=== PATIENT | female | born 1950 | race Caucasian/White ===

== ENCOUNTER 2020-07-31 13:33 | Outpatient (REF) | payer MEDICARE, SELFPAY ==
[2020-07-31 17:59] LABS: Estimated Average Glucose 154 mg/dL
== END 2020-07-31 13:34 | disposition home or self-care (01) ==
LOC: HO.MANLR 13:33
PROVIDERS: PCP Internal Medicine; Visit Provider Internal Medicine
DX: E11.9 Type 2 diabetes mellitus without complications (principal)
CPT/HCPCS: 83036

== ENCOUNTER 2020-08-17 15:49 | Outpatient (REF) | payer MEDICARE, SELFPAY ==
--- NOTE | 2020-08-17 15:54 | MM_ITS ---
EXAMINATION: MM SCREENING DIGITAL BREAST TOMOSYNTHESIS, BILATERAL CLINICAL INFORMATION: Screening. Asymptomatic. The lifetime risk of breast cancer based on the Tyrer-Cuzick Model is 3%. COMPARISON: Mammography: 12/23/2018; outside mammography 07/11/2015 ([facility]). TECHNIQUE: Digital breast tomosynthesis is performed in both the craniocaudal and mediolateral oblique views along with computer-aided detection (CAD). Synthesized 2D images are generated from the tomosynthesis. FINDINGS: There are scattered areas of fibroglandular density (ACR BI-RADS breast composition Category b). There are no significant masses, abnormal calcifications, or other abnormalities. Parenchymal pattern is similar to prior exams. No developing density. No significant changes. MM/MM tomosynthesis screening BI IMPRESSION: No mammographic evidence of malignancy. ASSESSMENT: BI-RADS 1: Negative RECOMMENDATION: Routine annual mammography screening. This patient's information was entered into a reminder system with a target due date for their next mammogram.
== END 2020-08-17 15:50 | disposition home or self-care (01) ==
LOC: HO.MAMMO 15:49
PROVIDERS: PCP Internal Medicine; Visit Provider Internal Medicine
DX: Z12.31 Encounter for screening mammogram for malignant neoplasm of breast (principal)
CPT/HCPCS: 77063; 77067

== ENCOUNTER 2021-01-02 10:45 | Outpatient (REF) | payer MEDICARE, SELFPAY ==
[2021-01-02 13:20] LABS: Alanine Aminotransferase 26 U/L (0-31); Albumin Level 4.6 g/dL (3.5-5.0); Alkaline Phosphatase 66 U/L (39-117); Anion Gap 16 (12-20); Aspartate Amino Transferase 23 U/L (5-31); Bilirubin Total 0.5 mg/dL (0.0-1.0); Blood Urea Nitrogen 25 mg/dL (9-16); Calcium 9.3 mg/dL (8.4-10.2); Carbon Dioxide 25 mmol/L (22-29); Chloride 106 mmol/L (96-108); Cholesterol 211 mg/dL; Estimated Glomerular Filt Rate > 60; Glucose Fasting 143 mg/dL (60-99); HDL Cholesterol 51 mg/dL; LDL Cholesterol Calculated 125 mg/dl; Potassium 4.1 mmol/L (3.3-5.1); Sodium 143 mmol/L (135-145); Total Protein 7.1 g/dL (6.5-8.0); Triglycerides 175 mg/dL
[2021-01-02 13:24] LABS: Estimated Average Glucose 148 mg/dL; Hemoglobin A1c % 6.8 %
[2021-01-02 13:55] LABS: Creatinine Urine 95.03 mg/dL; Microalbum/Creatinine Ratio Ur 8.4 ug/mg cr
== END 2021-01-02 10:46 | disposition home or self-care (01) ==
LOC: HO.MANLDS 10:45
PROVIDERS: PCP Internal Medicine; Visit Provider Internal Medicine
DX: E11.9 Type 2 diabetes mellitus without complications (principal)
CPT/HCPCS: 36415; 80053; 80061; 82043; 83036

== ENCOUNTER → 2021-01-07 09:23 | Outpatient (BNVA) | payer MEDICARE, SELFPAY | PROVIDERS: PCP Internal Medicine; Visit Provider Obstetrics & Gynecology ==

== ENCOUNTER 2021-01-17 10:20 | Outpatient (REF) | payer MEDICARE, SELFPAY ==
--- NOTE | ~2021-01-17 | MM_ITS ---
EXAMINATION: BONE DENSITOMETRY CLINICAL INDICATION: Asymptomatic menopausal state. COMPARISON: This is the patient's baseline examination. TECHNIQUE: Using a [employer] DXA System (software version: 13.1) manufactured by [employer], dual-energy x-ray absorptiometry was performed of the lumbar spine and left hip. The images are of good technical quality. Summary results are attached. FINDINGS: AP SPINE L1-L4: BMD 1.289 g/cm2, Z-score 1.9, T-score 0.9, normal. LEFT FEMUR, NECK: BMD 0.874 g/cm2, Z-score 0.1, T-score -1.2, osteopenia. LEFT FEMUR, TOTAL: BMD 1.115 g/cm2, Z-score 1.8, T-score 0.8, normal. IDENTIFIED RISK FACTORS: Menopause. HISTORY OF FRACTURE: None listed. MEDICATIONS: Multivitamin. MM/XR DEXA axial skeleton IMPRESSION: 1. DIAGNOSIS: Osteopenia based on the lowest T-score value of -1.2 in the femoral neck applying World Health Organization criteria. 2. 10-YEAR FRACTURE RISK PREDICTION, FRAX: Major osteoporotic fracture (clinical spine, forearm, hip or shoulder) 4.7%. Hip fracture 0.5%. 3. Treatment Recommendations: NOF guidelines recommend consideration for treatment in postmenopausal women and men age 50 and older presenting with the following: -A hip or vertebral (clinical or morphometric) fracture. -T-score less than or equal to -2.5 at the femoral neck or spine after appropriate evaluation to exclude secondary causes. -Low bone mass at the hip or spine and a 10-year fracture probability by FRAX of greater than or equal to 3% for hip fracture or greater than or equal to 20% for major osteoporotic fracture based on the [place] adapted WHO algorithm. 4. Other Recommendations: All treatment decisions require clinical judgment and consideration of individual patient factors, including patient preferences, comorbidities, previous drug use, risk factors not captured in the FRAX model (e.g. frailty, falls, vitamin D deficiency, increased bone turnover, interval significant decline in bone density) and possible under or overestimation of fracture risk by FRAX. Additional medical evaluation for secondary cause of low bone mineral density may be appropriate. FUTURE SCAN RECOMMENDATION: People with diagnosed cases of osteoporosis or at high risk for fracture should have regular bone mineral density tests. For patients eligible for Medicare, routine testing is allowed once every 2 years. The testing frequency can be increased to one year for patients who have rapidly progressing disease, those who are receiving or discontinuing medical therapy to restore bone mass, or have additional risk factors.
== END 2021-01-17 10:21 | disposition home or self-care (01) ==
LOC: HO.MAMMO 10:20
PROVIDERS: PCP Internal Medicine; Visit Provider Obstetrics & Gynecology
DX: Z13.820 Encounter for screening for osteoporosis (principal); Z78.0 Asymptomatic menopausal state
CPT/HCPCS: 77080

== ENCOUNTER → 2021-01-31 11:01 | Outpatient (BNVA) | payer MEDICARE, SELFPAY | PROVIDERS: PCP Internal Medicine; Visit Provider Obstetrics & Gynecology | CPT/HCPCS: Q3014 ==

== ENCOUNTER 2021-05-24 09:59 | Outpatient (REF) | payer MEDICARE, SELFPAY ==
[2021-05-24 11:52] LABS: Estimated Average Glucose 154 mg/dL
[2021-05-24 12:09] LABS: Alanine Aminotransferase 25 U/L (0-31); Albumin Level 4.5 g/dL (3.5-5.0); Alkaline Phosphatase 72 U/L (39-117); Anion Gap 13 (12-20); Aspartate Amino Transferase 23 U/L (5-31); Bilirubin Total 0.5 mg/dL (0.0-1.0); Blood Urea Nitrogen 21 mg/dL (9-16); Calcium 9.4 mg/dL (8.4-10.2); Carbon Dioxide 25 mmol/L (22-29); Chloride 107 mmol/L (96-108); Cholesterol 193 mg/dL; Estimated Glomerular Filt Rate > 60; Glucose Fasting 145 mg/dL (60-99); HDL Cholesterol 51 mg/dL; LDL Cholesterol Calculated 118 mg/dl; Potassium 4.3 mmol/L (3.3-5.1); Sodium 141 mmol/L (135-145); Triglycerides 121 mg/dL
== END 2021-05-24 10:00 | disposition home or self-care (01) ==
LOC: HO.MANLDS 09:59
PROVIDERS: PCP Internal Medicine; Visit Provider Internal Medicine
DX: E11.9 Type 2 diabetes mellitus without complications (principal)
CPT/HCPCS: 36415; 80053; 80061; 83036

== ENCOUNTER 2021-09-17 10:36 | Outpatient (REF) | payer MEDICARE, SELFPAY ==
[2021-09-17 14:06] LABS: Estimated Average Glucose 148 mg/dL; Hemoglobin A1c % 6.8 %
== END 2021-09-17 10:37 | disposition home or self-care (01) ==
LOC: HO.MANLDS 10:36
PROVIDERS: PCP Internal Medicine; Visit Provider Internal Medicine
DX: E11.9 Type 2 diabetes mellitus without complications (principal)
CPT/HCPCS: 36415; 83036

== ENCOUNTER 2022-01-22 09:02 | Outpatient (REF) | payer MEDICARE, SELFPAY ==
[2022-01-22 11:55] LABS: Estimated Average Glucose 146 mg/dL; Hemoglobin A1c % 6.7 %
[2022-01-22 12:05] LABS: Alanine Aminotransferase 26 U/L (0-31); Albumin Level 4.5 g/dL (3.5-5.0); Alkaline Phosphatase 65 U/L (39-117); Anion Gap 14 (12-20); Aspartate Amino Transferase 26 U/L (5-31); Bilirubin Total 0.3 mg/dL (0.0-1.0); Blood Urea Nitrogen 22 mg/dL (9-16); Calcium 9.6 mg/dL (8.4-10.2); Carbon Dioxide 26 mmol/L (22-29); Chloride 106 mmol/L (96-108); Cholesterol 224 mg/dL; Estimated Glomerular Filt Rate > 60; Glucose Fasting 149 mg/dL (60-99); HDL Cholesterol 51 mg/dL; LDL Cholesterol Calculated 136 mg/dl; Potassium 4.6 mmol/L (3.3-5.1); Sodium 141 mmol/L (135-145); Total Protein 7.3 g/dL (6.5-8.0); Triglycerides 188 mg/dL
== END 2022-01-22 09:03 | disposition home or self-care (01) ==
LOC: HO.MANLDS 09:02
PROVIDERS: PCP Internal Medicine; Visit Provider Internal Medicine
DX: E11.9 Type 2 diabetes mellitus without complications (principal)
CPT/HCPCS: 36415; 80053; 80061; 83036

== ENCOUNTER 2022-06-25 09:51 | Outpatient (REF) | payer MEDICARE, SELFPAY ==
[2022-06-25 11:37] LABS: Estimated Average Glucose 163 mg/dL; Hemoglobin A1c % 7.3 %
[2022-06-25 14:56] LABS: Alanine Aminotransferase 33 U/L (0-31); Albumin Level 4.3 g/dL (3.5-5.0); Alkaline Phosphatase 71 U/L (39-117); Anion Gap 16 (12-20); Aspartate Amino Transferase 29 U/L (5-31); Bilirubin Total 0.4 mg/dL (0.0-1.0); Blood Urea Nitrogen 18 mg/dL (9-16); Calcium 9.4 mg/dL (8.4-10.2); Carbon Dioxide 26 mmol/L (22-29); Chloride 108 mmol/L (96-108); Cholesterol 215 mg/dL; Estimated Glomerular Filt Rate > 60; Glucose Random 138 mg/dL (60-115); HDL Cholesterol 50 mg/dL; LDL Cholesterol Calculated 136 mg/dl; Potassium 4.7 mmol/L (3.3-5.1); Sodium 145 mmol/L (135-145); Total Protein 6.8 g/dL (6.5-8.0); Triglycerides 146 mg/dL
== END 2022-06-25 09:52 | disposition home or self-care (01) ==
LOC: HO.MANLDS 09:51
PROVIDERS: Visit Provider Internal Medicine
DX: E11.9 Type 2 diabetes mellitus without complications (principal)
CPT/HCPCS: 36415; 80053; 80061; 83036

== ENCOUNTER 2022-08-08 12:25 | Outpatient (REF) | payer MEDICARE, SELFPAY ==
--- NOTE | ~2022-08-08 | XR_ITS ---
EXAMINATION: XR KNEE, RIGHT CLINICAL INFORMATION: Derangement of medial meniscus. COMPARISON: None TECHNIQUE: Four views of the right knee. FINDINGS: There is loss of medial compartment joint space with periarticular spurring. The lateral and patellofemoral compartment joint spaces normal. There are no loose bodies. No abnormal joint effusion seen XR/XR knee RT 3V IMPRESSION: Degenerative arthritic changes medial compartment with periarticular spurring. No visible acute fracture or dislocation seen.
== END 2022-08-08 12:26 | disposition home or self-care (01) ==
LOC: HO.XRAY 12:25
PROVIDERS: PCP Internal Medicine; Visit Provider Internal Medicine
DX: M23.203 Derangement of unspecified medial meniscus due to old tear or injury, right knee (principal)
CPT/HCPCS: 73562

== ENCOUNTER 2022-11-25 11:14 | Outpatient (REF) | payer MEDICARE, SELFPAY ==
[2022-11-25 14:08] LABS: Estimated Average Glucose 174 mg/dL; Hemoglobin A1c % 7.7 %
== END 2022-11-25 11:15 | disposition home or self-care (01) ==
LOC: HO.WFDLDS 11:14
PROVIDERS: Visit Provider Internal Medicine
DX: E11.9 Type 2 diabetes mellitus without complications (principal)
CPT/HCPCS: 36415; 83036

== ENCOUNTER 2023-02-10 10:35 | Outpatient (REF) | payer MEDICARE, SELFPAY ==
--- NOTE | ~2023-02-10 | MM_ITS ---
EXAMINATION: MM SCREENING DIGITAL BREAST TOMOSYNTHESIS, BILATERAL CLINICAL INFORMATION: Screening. Asymptomatic. The lifetime risk of breast cancer based on the Tyrer-Cuzick Model is 3%. COMPARISON: Mammography: 08/17/2020, 01/02/2019, outside exam 07/11/2015 ([facility] [place]) TECHNIQUE: Digital breast tomosynthesis is performed in both the craniocaudal and mediolateral oblique views along with computer-aided detection (CAD). Synthesized 2D images are generated from the tomosynthesis. FINDINGS: There are scattered areas of fibroglandular density (ACR BI-RADS breast composition Category b). There are no significant masses, abnormal calcifications, or other abnormalities. Parenchymal pattern is similar to prior studies. There is no developing density or architectural abnormality. The axilla and skin contours are unremarkable. No significant changes. MM/MM tomosynthesis screening BI IMPRESSION: No mammographic evidence of malignancy. ASSESSMENT: BI-RADS 1: Negative RECOMMENDATION: Routine annual mammography screening. This patient's information was entered into a reminder system with a target due date for their next mammogram.
== END 2023-02-10 10:36 | disposition home or self-care (01) ==
LOC: HO.MAMMO 10:35
PROVIDERS: PCP Internal Medicine; Visit Provider Internal Medicine
DX: Z12.31 Encounter for screening mammogram for malignant neoplasm of breast (principal)
CPT/HCPCS: 77063; 77067

== ENCOUNTER 2023-02-13 11:40 | Outpatient (REF) | payer MEDICARE, SELFPAY ==
[2023-02-13 14:06] LABS: Estimated Average Glucose 143 mg/dL; Hemoglobin A1c % 6.6 %
== END 2023-02-13 11:41 | disposition home or self-care (01) ==
LOC: HO.MANLDS 11:40
PROVIDERS: Visit Provider Internal Medicine
DX: E11.9 Type 2 diabetes mellitus without complications (principal)
CPT/HCPCS: 36415; 83036

== ENCOUNTER 2023-05-19 12:05 | Outpatient (REF) | payer MEDICARE, SELFPAY ==
[2023-05-20 05:20] LABS: Estimated Average Glucose 134 mg/dL; Hemoglobin A1c % 6.3 %
== END 2023-05-19 12:06 | disposition home or self-care (01) ==
LOC: HO.MANLDS 12:05
PROVIDERS: Visit Provider Internal Medicine
DX: E11.9 Type 2 diabetes mellitus without complications (principal)
CPT/HCPCS: 36415; 83036

== ENCOUNTER 2023-09-11 09:35 | Outpatient (REF) | payer MEDICARE, SELFPAY ==
[2023-09-11 13:47] LABS: Estimated Average Glucose 154 mg/dL
== END 2023-09-11 09:36 | disposition home or self-care (01) ==
LOC: HO.MANLDS 09:35
PROVIDERS: Visit Provider Internal Medicine
DX: E11.9 Type 2 diabetes mellitus without complications (principal)
CPT/HCPCS: 36415; 83036

== ENCOUNTER 2024-01-20 11:12 | Outpatient (REF) | payer MEDICARE, SELFPAY ==
[2024-01-20 13:41] LABS: Estimated Average Glucose 157 mg/dL; Hemoglobin A1c % 7.1 % (<6.0)
== END 2024-01-20 11:13 | disposition home or self-care (01) ==
LOC: HO.MANLDS 11:12
PROVIDERS: Visit Provider Internal Medicine
DX: E11.9 Type 2 diabetes mellitus without complications (principal)
CPT/HCPCS: 36415; 83036

== ENCOUNTER 2024-05-18 11:22 | Outpatient (REF) | payer MEDICARE, SELFPAY ==
[2024-05-18 13:25] LABS: MANUAL DIFF FLAG NO
[2024-05-18 13:43] LABS: Estimated Average Glucose 151 mg/dL; Hemoglobin A1c % 6.9 % (<6.0)
[2024-05-18 13:50] LABS: Basophils Percent Auto 0.3 % (0-2); Eosinophils Absolute Auto 0.2 X10*3/uL (0.0-0.4); Eosinophils Percent Auto 2.3 % (0-4); Hematocrit 38.5 % (37.0-47.0); Hemoglobin 13.1 g/dl (12.0-16.0); Imm Gran Abs Auto 0.02 X10*3/uL (0.00-0.03); Imm Gran Pct Auto 0.3 % (0.0-0.4); Lymphocytes Absolute Auto 3.7 X10*3/uL (1.2-4.9); Lymphocytes Percent Auto 47.8 % (20-40); Mean Corpuscular Hemoglobin 30.1 pg (27.0-33.0); Mean Corpuscular Volume 88.5 fL (80.0-98.0); Monocytes Absolute Auto 0.5 X10*3/uL (0.1-1.2); Monocytes Percent Auto 6.6 % (2-11); Neutrophils Absolute Auto 3.3 x10*3/uL (2.0-8.3); Neutrophils Percent Auto 42.7 % (45-73); Platelet Count 186 X10*3/uL (160-400); Red Blood Count 4.35 X10*6/uL (4.20-5.50); White Blood Count 7.7 X10*3/uL (4.8-10.8)
== END 2024-05-18 11:23 | disposition home or self-care (01) ==
LOC: HO.MANLDS 11:22
PROVIDERS: Visit Provider Internal Medicine
DX: R06.09 Other forms of dyspnea (principal); E11.9 Type 2 diabetes mellitus without complications
CPT/HCPCS: 36415; 83036; 85025

== ENCOUNTER 2024-08-22 09:36 | Day surgery (SDC) | payer MEDICARE, SELFPAY ==
[2024-08-17 07:35] VITALS: BMI 39.7
--- NOTE | 2024-08-18 13:59 | HO.ANESPROP2 ---
Documented by User: Zeinab Saravia NP 08/18/24 14:02 HPI - Anesthesia Eval Consult details Narrative: 73yo F for Left Cataract Extraction IOL Insertion No previous cataract on record PMFSH Active Problems Active Problems: All Active Problems (Updated 08/17/24 @ 07:27 by Alicia Pretty RN) Osteopenia (Acute) Osteoporosis (Acute) Menopause (Acute) Well woman exam (Acute) Past Medical History Medical History Impingement syndrome of left shoulder Rupture of left rotator cuff Derangement of medial meniscus of right knee Osteoarthritis Dyspnea on exertion Cervical radiculopathy Psoriasis Proctocolitis Allergic rhinitis Bradycardia Left bundle branch block Macular hole of left eye Sleep apnea Diabetes High cholesterol Hypertension Surgical History Surgical History Tubal ligation status History of appendectomy Social History Social History Alcohol intake: never Patient Tobacco Use Status: Never used Tobacco Use of substances other than those prescribed or required for medical reasons: No Are you DNR?: No Advance Directives: No Advance Directives Information Provided: Yes Advance Directives on File: No Recently lost weight without trying: No Eating poorly because of decreased appetite: No Nutrition Risks: No Nutritional Risk Patient : No : No Gender identity: Female Meds Allergies Allergy/AdvReac Type Severity Reaction Status Date / Time No Known Allergies Allergy Mild NOT Verified 01/31/21 11:02 APPLICABLE Home Medications ?Medication ?Instructions ?Recorded ?Confirmed ?Last Taken ?Type lovastatin 40 mg tablet 40 mg PO DAILY 01/07/21 08/22/24 08/22/24 07:00 History aspirin 81 mg tablet,delayed 81 mg PO DAILY 08/17/24 08/22/24 08/20/24 History release flaxseed oil 1,000 mg capsule 1,000 mg PO DAILY 08/17/24 08/22/24 08/20/24 History glimepiride 4 mg tablet 4 mg PO DAILY 08/17/24 08/22/24 08/22/24 07:00 History lactobacillus combination no.4 3 3,000 mmu cells PO DAILY 08/17/24 08/22/24 Unknown History billion cell capsule (Probiotic) lisinopril 10 mg tablet 10 mg PO DAILY 08/17/24 08/22/24 08/22/24 07:00 History multivitamin 1 tab PO DAILY 08/17/24 08/22/24 Unknown History Exam Height,Weight and Vital Signs: Height 4 ft 11.25 in Weight 89.902 kg Assessment and Plan Assessment Anesthesia Assessment: Chart Reviewed Documented by User: Bernice Cuenca MD 08/22/24 10:48 PMF Past Medical History Medical History Impingement syndrome of left shoulder Rupture of left rotator cuff Derangement of medial meniscus of right knee Osteoarthritis Dyspnea on exertion Cervical radiculopathy Psoriasis Proctocolitis Allergic rhinitis Bradycardia Left bundle branch block Macular hole of left eye Sleep apnea Diabetes High cholesterol Hypertension Surgical History Surgical History Tubal ligation status History of appendectomy History of Problems with Anesthesia: No Social History Social History Alcohol intake: never Patient Tobacco Use Status: Never used Tobacco Use of substances other than those prescribed or required for medical reasons: No Are you DNR?: No Advance Directives: No Advance Directives Information Provided: Yes Advance Directives on File: No Recently lost weight without trying: No Eating poorly because of decreased appetite: No Nutrition Risks: No Nutritional Risk Patient : No : No Gender identity: Female Meds Allergies Allergy/AdvReac Type Severity Reaction Status Date / Time No Known Allergies Allergy Mild NOT Verified 01/31/21 11:02 APPLICABLE Home Medications ?Medication ?Instructions ?Recorded ?Confirmed ?Last Taken ?Type lovastatin 40 mg tablet 40 mg PO DAILY 01/07/21 08/22/24 08/22/24 07:00 History aspirin 81 mg tablet,delayed 81 mg PO DAILY 08/17/24 08/22/24 08/20/24 History release flaxseed oil 1,000 mg capsule 1,000 mg PO DAILY 08/17/24 08/22/24 08/20/24 History glimepiride 4 mg tablet 4 mg PO DAILY 08/17/24 08/22/24 08/22/24 07:00 History lactobacillus combination no.4 3 3,000 mmu cells PO DAILY 08/17/24 08/22/24 Unknown History billion cell capsule (Probiotic) lisinopril 10 mg tablet 10 mg PO DAILY 08/17/24 08/22/24 08/22/24 07:00 History multivitamin 1 tab PO DAILY 08/17/24 08/22/24 Unknown History Exam Airway Mallampati Class: II TM Dist: >3cm Neck ROM: Full Loose/Missing/Broken Teeth: No Heart: RRR Lungs: CTA Assessment and Plan Final Anesthetic Review History of Problems with Anesthesia: No NPO: Yes ASA Class: III Final Preanesthetic Review: Meds/Allgs Chart Reviewed, Consent Obtained/Reviewed and Anes Risks/Benef Reviewed Patient Risk: Intermediate Procedure Risk: Low Anesthetic Plan Anesthetic Plan: MAC: Disposition: Standard PACU
[2024-08-22] MEDS: Tetracaine HCl/PF 0.5% Oph Sol 4 ML DROPS 1 DROP EYE-LEFT (10:42)
[2024-08-22] MEDS: Cyclopentolate 1 % Ophth Sol 2 ML DRPBTL 1 DROP EYE-LEFT ×2 (10:49→10:57)
[2024-08-22] MEDS: Tropicamide 1 % Ophth Sol 3 ML BTL 1 DROP EYE-LEFT ×3 (10:49→11:05)
[2024-08-22] MEDS: Ketorolac Tromethamine 0.5% Op 10 ML DROPS 1 DROP EYE-LEFT ×3 (10:52→11:07)
[2024-08-22] MEDS: Phenylephrine HCL 2.5% Oph SoL 2 ML BOTTLE 1 DROP EYE-LEFT ×3 (10:53→11:08)
[2024-08-22 10:54] VITALS: BP 147/52; PULSE 60; RESP 16; TEMP 37; O2SAT 93; BMI 39.0
[2024-08-22] MEDS: Lactated Ringers 500 ML 50 ML IV (11:04)
--- NOTE | 2024-08-22 11:10 | MHC.SHP ---
Pre-Procedural Eval Section A - 24 Hr Update-Section A only Date of Service: 08/22/24 The patient is an INPATIENT: No Changes since office visit: No Cold of Flu in the past 2 weeks, No New Medical Problems, No Changes in Medication and No Patient answered all questions The patient has been examined within 24 hours of the surgical procedure. The History & Physical has been completed within 30 days and I have reviewed it.: Yes Section B - Complete if H&P > 30 days Chief Complaint: Age-related nuclear cataract, left eye Allergies: Allergies Allergy/AdvReac Type Severity Reaction Status Date / Time No Known Allergies Allergy Mild NOT Verified 01/31/21 11:02 APPLICABLE Plan Diagnosis/Plan: Unchanged I have reviewed the history and physical and performed a pertinent physical examination on my patient. No changes have occurred unless specified. Time Spent With Patient Time: Total time managing care of this patient today ____ minutes.
--- NOTE | 2024-08-22 11:10 | HO.PNOPHT ---
Ophthalmology Procedure Procedure Date of Service: 08/22/24 Ophthalmology Viscoelastic: Healon Duet Dual Pack Pro Ophthalmology Lenses: IOL Acrysof MP - MA60AC (21) Procedure Notes: PREOPERATIVE DIAGNOSIS: Decreased visual acuity left eye secondary to cataract POSTOPERATIVE DIAGNOSIS: Same PROCEDURE: Left cataract extraction with intraocular lens insertion SURGEON: Shreyas Ruiz M.D. ANESTHESIA: Topical/MAC ESTIMATED BLOOD LOSS: None COMPLICATIONS: None After obtaining informed consent, the patient was brought to the operation room suite and placed in the supine position. After adequate sedation per anesthesia, topical drops of Tetracaine were given to the left eye. The eye was then prepped and draped in the usual sterile fashion. The operating room microscope was then positioned over the operative eye and a lid speculum placed. A paracentesis was created. Viscoelastic was then instilled into the anterior chamber. A three plane incision was then created temporally, utilizing a 2.85 mm keratome. Capsulotomy forceps were then utilized to create a circular tear capsulotomy. Hydrodissection and hydrodelineation were carried out until adequate mobilization of the nucleus occurred. Phacoemulsification was then utilized to remove the dense central nucleus followed by removal of the cortical material utilizing the automated aspiration irrigation unit. Viscoat elastic was instilled into the posterior capsular bag followed by placement of a posterior chamber intraocular lens without difficulty. The residual Viscoat elastic was then removed utilizing the automated IA machine. The wound was check and found to be watertight. The patient tolerated the procedure well and the lid speculum was removed. Intracameral injection of Vigamox 0.1 mL followed by a subtenon injection of Kenalog-40 0.2 mL were administered. The patient will be seen in the a.m.
[2024-08-22 11:32] LABS: Glucose, Whole Blood 121 mg/dL (60-115)
[2024-08-22 11:43] VITALS: BP 148/46; PULSE 60; RESP 16; TEMP 36.4; O2SAT 94
== END 2024-08-22 11:45 | disposition home or self-care (01) ==
PROVIDERS: PCP Internal Medicine; Visit Provider Ophthalmology
PROC: (CPT 66985; principal; 2024-08-22 12:00)
DX: H25.12 Age-related nuclear cataract, left eye (principal); H52.4 Presbyopia; H35.342 Macular cyst, hole, or pseudohole, left eye; H18.413 Arcus senilis, bilateral; G47.33 Obstructive sleep apnea (adult) (pediatric); I10 Essential (primary) hypertension; E11.9 Type 2 diabetes mellitus without complications; E78.00 Pure hypercholesterolemia, unspecified; I44.7 Left bundle-branch block, unspecified; Z79.84 Long term (current) use of oral hypoglycemic drugs; Z79.899 Other long term (current) drug therapy
CPT/HCPCS: 66984; 82947; J2250; J3301; V2630

== ENCOUNTER 2024-09-05 08:49 | Day surgery (SDC) | payer MEDICARE, SELFPAY ==
[2024-08-17 07:40] VITALS: BMI 39.7
--- NOTE | 2024-08-30 13:46 | P.CONAN_ITS ---
Documented by User: Zeinab Saravia NP 08/30/24 13:46 HPI - Anesthesia Eval Consult details Narrative: 74yo F for Right Cataract Extraction IOL Insertion Left eye 08/22/24: [place] 1.5 PMFSH Active Problems Active Problems: All Active Problems Osteopenia (Acute) Osteoporosis (Acute) Menopause (Acute) Well woman exam (Acute) Past Medical History Medical History Impingement syndrome of left shoulder Rupture of left rotator cuff Derangement of medial meniscus of right knee Osteoarthritis Dyspnea on exertion Cervical radiculopathy Psoriasis Proctocolitis Allergic rhinitis Bradycardia Left bundle branch block Macular hole of left eye Sleep apnea Diabetes High cholesterol Hypertension Surgical History Surgical History Tubal ligation status History of appendectomy History of Problems with Anesthesia: No Social History Social History Alcohol intake: never Patient Tobacco Use Status: Never used Tobacco Use of substances other than those prescribed or required for medical reasons: No Are you DNR?: No Advance Directives: No Advance Directives Information Provided: Yes Advance Directives on File: No Recently lost weight without trying: No Nutrition Risks: No Nutritional Risk Patient : No : No Gender identity: Female Meds Allergies Allergy/AdvReac Type Severity Reaction Status Date / Time No Known Allergies Allergy Mild NOT Verified 01/31/21 11:02 APPLICABLE Home Medications ?Medication ?Instructions ?Recorded ?Confirmed ?Last Taken ?Type lovastatin 40 mg tablet 40 mg PO DAILY 01/07/21 08/22/24 08/22/24 07:00 History aspirin 81 mg tablet,delayed 81 mg PO DAILY 08/17/24 08/22/24 08/20/24 History release flaxseed oil 1,000 mg capsule 1,000 mg PO DAILY 08/17/24 08/22/24 08/20/24 History glimepiride 4 mg tablet 4 mg PO DAILY 08/17/24 08/22/24 08/22/24 07:00 History lactobacillus combination no.4 3 3,000 mmu cells PO DAILY 08/17/24 08/22/24 Unknown History billion cell capsule (Probiotic) lisinopril 10 mg tablet 10 mg PO DAILY 08/17/24 08/22/24 08/22/24 07:00 History multivitamin 1 tab PO DAILY 08/17/24 08/22/24 Unknown History Exam Height,Weight and Vital Signs: Height 4 ft 11.25 in Weight 89.902 kg Assessment and Plan Assessment Anesthesia Assessment: Chart Reviewed Final Anesthetic Review History of Problems with Anesthesia: No Documented by User: Margaux Starkey MD 09/05/24 10:19 [facility] Past Medical History Medical History Impingement syndrome of left shoulder Rupture of left rotator cuff Derangement of medial meniscus of right knee Osteoarthritis Dyspnea on exertion Cervical radiculopathy Psoriasis Proctocolitis Allergic rhinitis Bradycardia Left bundle branch block Macular hole of left eye Sleep apnea Diabetes High cholesterol Hypertension Family History Family history of problems with anesthesia: No Surgical History Surgical History Tubal ligation status History of appendectomy Social History Social History Alcohol intake: never Patient Tobacco Use Status: Never used Tobacco Use of substances other than those prescribed or required for medical reasons: No Are you DNR?: No Advance Directives: No Advance Directives Information Provided: Yes Advance Directives on File: No Recently lost weight without trying: No Nutrition Risks: No Nutritional Risk Patient : No : No Gender identity: Female Meds Allergies Allergy/AdvReac Type Severity Reaction Status Date / Time No Known Allergies Allergy Mild NOT Verified 01/31/21 11:02 APPLICABLE Home Medications ?Medication ?Instructions ?Recorded ?Confirmed ?Last Taken ?Type lovastatin 40 mg tablet 40 mg PO DAILY 01/07/21 08/22/24 08/22/24 07:00 History aspirin 81 mg tablet,delayed 81 mg PO DAILY 08/17/24 08/22/24 08/20/24 History release flaxseed oil 1,000 mg capsule 1,000 mg PO DAILY 08/17/24 08/22/24 08/20/24 History glimepiride 4 mg tablet 4 mg PO DAILY 08/17/24 08/22/24 08/22/24 07:00 History lactobacillus combination no.4 3 3,000 mmu cells PO DAILY 08/17/24 08/22/24 Unknown History billion cell capsule (Probiotic) lisinopril 10 mg tablet 10 mg PO DAILY 08/17/24 08/22/24 08/22/24 07:00 History multivitamin 1 tab PO DAILY 08/17/24 08/22/24 Unknown History Exam Airway Mallampati Class: III TM Dist: <=3cm Neck ROM: Limited Heart: rrr Lungs: cta Assessment and Plan Final Anesthetic Review Family History of Problems with Anesthesia: No NPO: Yes ASA Class: III Final Preanesthetic Review: No Changes in Pt Med Stat, Meds/Allgs Chart Reviewed, Consent Obtained/Reviewed and Anes Risks/Benef Reviewed Patient Risk: Intermediate Procedure Risk: Low Anesthetic Plan Anesthetic Plan: MAC: Disposition: Standard PACU
[2024-09-05 09:26] VITALS: BP 138/48; PULSE 64; RESP 18; TEMP 36.7; O2SAT 96
[2024-09-05] MEDS: Phenylephrine HCL 2.5% Oph SoL 2 ML BOTTLE 1 DROP EYE-RIGHT ×3 (09:30→09:39)
[2024-09-05] MEDS: Tetracaine HCl/PF 0.5% Oph Sol 4 ML DROPS 1 DROP EYE-RIGHT (09:30)
[2024-09-05] MEDS: Lactated Ringers 500 ML 50 ML IV (09:30)
[2024-09-05] MEDS: Tropicamide 1 % Ophth Sol 3 ML BTL 1 DROP EYE-RIGHT ×3 (09:31→09:39)
[2024-09-05] MEDS: Ketorolac Tromethamine 0.5% Op 10 ML DROPS 1 DROP EYE-RIGHT ×3 (09:31→09:39)
[2024-09-05] MEDS: Cyclopentolate 1 % Ophth Sol 2 ML DRPBTL 1 DROP EYE-RIGHT ×3 (09:31→09:39)
[2024-09-05 09:44] LABS: Glucose, Whole Blood 169 mg/dL (60-115)
--- NOTE | 2024-09-05 10:18 | P.PCNO_ITS ---
Ophthalmology Procedure Procedure Date of Service: 09/05/24 Ophthalmology Viscoelastic: Healon Duet Dual Pack Pro Ophthalmology Lenses: IOL Acrysof MP - MA60AC (21) Procedure Notes: PREOPERATIVE DIAGNOSIS: Decreased visual acuity right eye secondary to cataract POSTOPERATIVE DIAGNOSIS: Same PROCEDURE: Right cataract extraction with intraocular lens insertion SURGEON: Shreyas Ruiz M.D. ANESTHESIA: Topical/MAC ESTIMATED BLOOD LOSS: None COMPLICATIONS: None After obtaining informed consent, the patient was brought to the operating room suite and placed in the supine position. After adequate sedation per anesthesia, topical drops of Tetracaine were given to the right eye. The eye was then prepped and draped in the usual sterile fashion. The operating room microscope was then positioned over the operative eye and a lid speculum placed. A paracentesis was created. Viscoelastic was then instilled into the anterior chamber. A three plane incision was then created temporally, utilizing a 2.85 mm keratome. Capsulotomy forceps were then utilized to create a circular tear capsulotomy. Hydrodissection and hydrodelineation were carried out until adequate mobilization of the nucleus occurred. Phacoemulsification was then utilized to remove the dense central nucl eus followed by removal of the cortical material utilizing the automated aspiration irrigation unit. Viscoelastic was instilled into the posterior capsular bag followed by placement of a posterior chamber intraocular lens without difficulty. The residual Viscoelastic was then removed utilizing the automated IA machine. The wound was checked and found to be watertight. The patient tolerated the procedure well and the lid speculum was removed. Intracameral injection of Vigamox 0.1 mL followed by a subtenon injection of Kenalog-40 0.2 mL were administered. The patient will be seen in the a.m.
--- NOTE | 2024-09-05 10:18 | MHC.SHP ---
Pre-Procedural Eval Section A - 24 Hr Update-Section A only Date of Service: 09/05/24 The patient is an INPATIENT: No Changes since office visit: No Cold of Flu in the past 2 weeks, No New Medical Problems, No Changes in Medication and No Patient answered all questions The patient has been examined within 24 hours of the surgical procedure. The History & Physical has been completed within 30 days and I have reviewed it.: Yes Section B - Complete if H&P > 30 days Chief Complaint: Age-related nuclear cataract, right eye Allergies: Allergies Allergy/AdvReac Type Severity Reaction Status Date / Time No Known Allergies Allergy Mild NOT Verified 01/31/21 11:02 APPLICABLE Plan Diagnosis/Plan: Unchanged I have reviewed the history and physical and performed a pertinent physical examination on my patient. No changes have occurred unless specified. Time Spent With Patient Time: Total time managing care of this patient today ____ minutes.
[2024-09-05 10:45] VITALS: BP 152/63; PULSE 57; RESP 16; TEMP 36.5; O2SAT 97
== END 2024-09-05 10:52 | disposition home or self-care (01) ==
PROVIDERS: PCP Internal Medicine; Visit Provider Ophthalmology
PROC: (CPT 66985; principal; 2024-09-05 11:00)
DX: H25.11 Age-related nuclear cataract, right eye (principal); H52.4 Presbyopia; H18.413 Arcus senilis, bilateral; H35.342 Macular cyst, hole, or pseudohole, left eye; I10 Essential (primary) hypertension; I44.7 Left bundle-branch block, unspecified; E11.9 Type 2 diabetes mellitus without complications; G47.33 Obstructive sleep apnea (adult) (pediatric); E78.00 Pure hypercholesterolemia, unspecified; Z79.84 Long term (current) use of oral hypoglycemic drugs; Z79.899 Other long term (current) drug therapy
CPT/HCPCS: 66984; 82947; J2250; J3301; V2630

== ENCOUNTER 2024-10-28 10:42 | Outpatient (REF) | payer MEDICARE, SELFPAY ==
--- OUTSIDE RECORDS SUMMARY | 2024-10-28 12:16 | XMS_ITS | Data Portability ---
Author Organization [facility] Luis Carlosmaricruz Internal Medicine, Home Service Address [address] [place] [address] Assessment Encounter Date Assessment Date Assessment LastModified by Organization Details LastModified Time 09/21/2023 09/21/2023 [id number] [place] [address] (MECHANICAL DESIGN ENGINEER FACILITIES) [facility] MODERATE MUST MEET 2 OUT OF 3 ELEMENTS: PROBLEMS, DATA OR RISK ELEMENT 1: PROBLEMS ADDRESSED 1 OR MORE CHRONIC ILLNESS WITH EXACERBATION OR 2 OR MORE STABLE CHRONIC ILLNESSES OR 1 UNDIAGNOSED NEW PROBLEM OR 1 ACUTE ILLNESS W/SYMPTOMS OR 1 ACUTE COMPLICATED INJURY ELEMENT 2: DATA MUST MEET 1 OF 3 CATEGORIES CATEGORY 1: REVIEW OF PRIOR EXTERNAL NOTES, REVIEW OF RESULTS, ORDERING OF EACH TEST, ASSESSMENT REQUIRING INDEPENDENT HISTORIAN OR CATEGORY 2: INDEPENDENT INTERPRETATION OF TESTS BY ANOTHER PHYSICIAN OR SPECIALIST OR CATEGORY 3: DISCUSSION OF MGT OR TEST INTERPRETATION W/EXTERNAL PHYSICIAN OR SPECIALIST ELEMENT 3: RISK RISK OF COMPLICATIONS AND/OR MORBIDITY OR MORTALITY OF PATIENT MANAGEMENT PROVIDER MUST THOROUGHLY DOCUMENT EACH ELEMENT THAT IS COVERED Not available 09/21/2023 12:19:23 03/16/2024 03/16/2024 [id number] [place] [id number] (MECHANICAL DESIGN ENGINEER FACILITIES) [facility] MODERATE MUST MEET 2 OUT OF 3 ELEMENTS: PROBLEMS, DATA OR RISK ELEMENT 1: PROBLEMS ADDRESSED 1 OR MORE CHRONIC ILLNESS WITH EXACERBATION OR 2 OR MORE STABLE CHRONIC ILLNESSES OR 1 UNDIAGNOSED NEW PROBLEM OR 1 ACUTE ILLNESS W/SYMPTOMS OR 1 ACUTE COMPLICATED INJURY ELEMENT 2: DATA MUST MEET 1 OF 3 CATEGORIES CATEGORY 1: REVIEW OF PRIOR EXTERNAL NOTES, REVIEW OF RESULTS, ORDERING OF EACH TEST, ASSESSMENT REQUIRING INDEPENDENT HISTORIAN OR CATEGORY 2: INDEPENDENT INTERPRETATION OF TESTS BY ANOTHER PHYSICIAN OR SPECIALIST OR CATEGORY 3: DISCUSSION OF MGT OR TEST INTERPRETATION W/EXTERNAL PHYSICIAN OR SPECIALIST ELEMENT 3: RISK RISK OF COMPLICATIONS AND/OR MORBIDITY OR MORTALITY OF PATIENT MANAGEMENT PROVIDER MUST THOROUGHLY DOCUMENT EACH ELEMENT THAT IS COVERED Not available 03/16/2024 14:14:20 07/06/2024 07/06/2024 [id number] [place] [address] (MECHANICAL DESIGN ENGINEER FACILITIES) [facility] MODERATE MUST MEET 2 OUT OF 3 ELEMENTS: PROBLEMS, DATA OR RISK ELEMENT 1: PROBLEMS ADDRESSED 1 OR MORE CHRONIC ILLNESS WITH EXACERBATION OR 2 OR MORE STABLE CHRONIC ILLNESSES OR 1 UNDIAGNOSED NEW PROBLEM OR 1 ACUTE ILLNESS W/SYMPTOMS OR 1 ACUTE COMPLICATED INJURY ELEMENT 2: DATA MUST MEET 1 OF 3 CATEGORIES CATEGORY 1: REVIEW OF PRIOR EXTERNAL NOTES, REVIEW OF RESULTS, ORDERING OF EACH TEST, ASSESSMENT REQUIRING INDEPENDENT HISTORIAN OR CATEGORY 2: INDEPENDENT INTERPRETATION OF TESTS BY ANOTHER PHYSICIAN OR SPECIALIST OR CATEGORY 3: DISCUSSION OF MGT OR TEST INTERPRETATION W/EXTERNAL PHYSICIAN OR SPECIALIST ELEMENT 3: RISK RISK OF COMPLICATIONS AND/OR MORBIDITY OR MORTALITY OF PATIENT MANAGEMENT PROVIDER MUST THOROUGHLY DOCUMENT EACH ELEMENT THAT IS COVERED Not available 07/06/2024 15:06:37 Plan of Treatment Reminders Order Date Submit Date Provider Last Modified By Organization Details Last Modified Time Details Appointments FOLLOW UP 15 2024 11:30A M DR MONTGOMERY Not available Not available Not available Lab CBC 2023 024 [facility], [address] [place] [address], [place], [address], 05/19/2024 11:13:39 Referral general surgeon referral 2023 024 alena Townsend, [address] [place], [address], 01/25/2024 14:41:32 Procedures None recorded. Surgeries None recorded. Imaging electroca rdiogram 2023 024 [email or web address] [facility] (Echocardiolo gy Lab), [address] [place], [address], 02/08/2024 08:28:14 pharmacol ogic nuclear stress test - patient has LBBB please note this 2023 024 [email or web address] Not available 03/21/2024 09:23:07 XR, shoulder, 2 or more view [address] [facility], [address] [place], [address], 07/07/2024 08:25:23 XR, cervical spine, 2 or 3 view [address] [facility], [address] [place], [address], 07/07/2024 10:21:12 Medication Orders None recorded. Patient TargetsNo targets recorded. Patient Instructions Encounter Date Encounter Id Patient Instructions Last Modified By Organization Details Last Modified Time 01/25/2024 [id number] bradycardia: car e instructions Not available 01/25/2024 14:09:14 07/06/2024 [id number] learning about type 2 diabetes Not available 07/06/2024 15:09:01 type 2 diabetes: care instructions Not available 07/06/2024 15:09:01 Reason for Referral General Surgeon Referral for Painless rectal bleeding Referring Physician: Michael Montgomery, Internal Medicine, Encounter Date: 01/25/2024 Results Created Date Observation Date Name Description Value Unit Range Abnormal Flag Note LastModifiedBy Organization Detail LastModifiedTime 01/29/20 24 01/29/2024 elect chiqui lemusgr am No observ ation record ed. [email or web address] [facility] [address], [address], 02/03/2024 08:58:14 04/06/20 24 04/06/2024 pharm acolo gic nucle ar stres s test No observ ation record ed. [email or web address] [facility] [address] [place], [address], 04/11/2024 11:57:19 07/07/20 24 07/06/2024 XR, shoul zahira, 2 or more view No observ ation record ed. [facility] [address] [facility] [address], [place], [address], 07/11/2024 09:38:34 07/07/20 24 07/06/2024 XR, cervi chato spine , 2 or 3 view No observ ation record ed. [facility] [address] [facility] [address], [place], [address], 07/11/2024 09:38:34 08/22/20 24 08/21/2024 MRI, robles rodriges, w/o contr ast No observ ation record ed. [email or web address] [facility] [address] [facility], [place], [address], 08/26/2024 09:33:42 Result Notes None recorded. Problems Name Problem SNOMED Code Status Onset Date Resolution Date Notes Provider Name and Address Organization Details Recorded Time History of appendect oli 629247134 Active 2017 1962 Not Available [facility] 4 03:59:46 Allergic rhinitis 32123392 Active 2017 Not Available [facility] 4 03:59:46 Hypertens ifeoma disorder 01015458 Active 2017 Not Available [facility] 4 03:59:46 Hyperlipi demia 14152341 Active 2017 Not Available [facility] 4 03:59:46 Menopause Active 2017 Not Available [facility] 4 03:59:45 Psoriasis 6574713 Active 2017 Not Available [facility] 4 03:59:46 Obstructi ve sleep apnea syndrome 43997347 Active 2017 Not Available [facility] 4 03:59:46 Type 2 diabetes mellitus 07541461 Active 2017 Not Available [facility] 4 03:59:46 Macular hole 285790649 Active 2018 Not Available [facility] 4 03:59:45 Derangeme nt of medial meniscus of right knee 231765244815 106 Active 2021 Not Available [facility] 4 03:59:45 Osteoarth ritis of left knee joint 124589637146 109 Active 2022 Not Available [facility] 4 03:59:46 Acute urinary tract infection 139956253 Active 2022 Not Available [facility] 4 03:59:46 Proctocol itis 931084547 Active 2023 Michael Montgomery, DO [address] [place] [address], [address], [facility] 4 19:17:28 Abdominal pain 67471884 Active 2023 RALPH MERCADO [address] [place] [address], [address], [facility] 4 13:34:36 Bradycard ia 32180116 Active 2023 Michael Montgomery, DO [address] [place] [address], [address], [facility] 4 14:08:14 Painless rectal bleeding 442958647 Active 2023 Michael Montgomery DO [address] [place] [address], [address], [facility] 4 14:13:47 Dyspnea on exertion 50095149 Active 2023 Michael Montgomery DO [address] [place] [address], [address], [facility] 4 14:13:37 Left bundle branch block 75812668 Active 2023 Michael Montgomery DO [address] [place] [address], [address], [facility] 4 14:14:14 Pain of left shoulder joint 319157405779 81516 Active 2023 Michael Montgomery, DO [address] [place] [address], [address], [facility] 4 15:06:48 Cervical radiculop athy 39028442 Active 2023 Michael Montgomery DO [address] [place] [address], [address], [facility] 4 15:07:41 Rupture of rotator cuff of left shoulder 640264509715 83572 Active 2023 Michael Montgomery, DO [address] [facility], [place], [address], [facility] 23:27:20 Impingeme nt syndrome of left shoulder region 113941159996 104 Active 2023 Michael Montgomery, DO [address] [facility], [place], [address], [facility] 4 09:39:20 Problem Notes None recorded. Procedures Surgical History Date Name Laterality Status Provider Name and Address Organization Details Recorded Time Most Recent Mammogram completed Eloise Perla [facility] 03/11/2019 16:30:52 Imaging Results Imaging Date Name Status LastModified by Organization Details LastModified Time 01/29/2024 electrocardiogram completed [email or web address] [facility] [address] [address], [place], [address], 02/03/2024 08:58:14 04/06/2024 pharmacologic nuclear stress test completed [email or web address] [address], [address], 04/11/2024 11:57:19 07/06/2024 XR, shoulder, 2 or more view completed [address] [facility] [address] [place] [address] [address], [place], [address], 07/11/2024 09:38:34 07/06/2024 XR, cervical spine, 2 or 3 view completed [address] [facility] [address] [place] [address] [address], [place], [address], 07/11/2024 09:38:34 08/21/2024 MRI, shoulder, w/o contrast completed [email or web address] [address], [address], 08/26/2024 09:33:42 Procedure Notes None recorded. Medical Equipment None Reported. Allergies No known drug allergies Medications Name Sig Start Date Stop Date Status Note LastModified by Organization Details LastModified Time azithromyci n 250 mg tablet TAKE 2 TABLETS (500 MG) BY ORAL ROUTE ONCE DAILY FOR 1 DAY THEN 1 TABLET (250 MG) BY ORAL ROUTE ONCE DAILY FOR 4 DAYS 08/08 completed Not Available Not Available Not Available ofloxacin 0.3 % eye drops 05/04 completed Not Available Not Available Not Available lovastatin 40 mg tablet TAKE 1 TABLET DAILY 2023 active Not Available Not Available Not Avai lable sulfamethox azole 800 mg-trimetho prim 160 mg tablet TAKE 1 TABLET BY MOUTH EVERY 12 HOURS FOR 5 DAYS 01/24 completed Not Available Not Available Not Available prednisolon e acetate 1 % eye drops,suspe nsion 05/04 completed Not Available Not Available Not Available lisinopril 10 mg tablet TAKE 1 TABLET DAILY active Not Available Not Available No t Available glimepiride 4 mg tablet TAKE 1 TABLET DAILY active Not Available Not Available No t Available hydrocortis one 2.5 % topical cream PLEASE SEE ATTACHED FOR DETAILED DIRECTION S active Not Available Not Available No t Available halobetasol propionate 0.05 % topical cream APPLY SMALL AMOUNT TO AFFECTED AREA THREE TIMES PER DAY NEEDED 02/18 completed Not Available Not Available Not Available lisinopril 5 mg tablet 1 po qd 09/12 completed Not Available Not Available Not Available lovastatin 20 mg tablet TAKE 1 TABLET DAILY 05/02 completed Not Available Not Available Not Available methylpredn isolone 4 mg tablets in a dose pack take as directed 08/08 completed Not Available Not Available Not Available lisinopril 2.5 mg tablet TAKE 1 TABLET DAILY 01/27 completed Not Available Not Available Not Available Pneumovax-2 3 25 mcg/0.5 mL injection syringe 11/10 completed Not Available Not Available Not Available Fish Oil qd 01/09 completed Not Available Not Available Not Available Aspir-81 qd active Not Available Not Avai lable Not Available flaxseed qd active Not Available Not Avai lable Not Available multivitami n qd active Not Available Not Available Not Available GaviLyte-G 236 gram-22.74 gram-6.74 gram-5.86 gram oral solution PER INSTRUCTI ONS FROM GI. active Not Available Not Available No t Available Prevnar 13 (PF) 0.5 mL intramuscul ar syringe 05/05 completed Not Available Not Available Not Available Probiotic active Not Available Not Madeleine ilable Not Available OneTouch Verio test strips USE AND DISCARD 1 TEST STRIP TWO TIMES A DAY DIRECTED active Not Available Not Available No t Available Fluad 2016-18 65yr up(PF)45 mcg(15 mcgx3)/0.5 mL intramuscul ar syringe 05/05 completed Not Available Not Available Not Available Fluzone High-Dose 2668-5609 (PF) 180 mcg/0.5 mL intramuscul ar syringe 11/10 completed Not Available Not Available Not Available OneTouch Ultra2 Meter USE DIRECTED 2023 active Not Available Not Available Not Avai lable Fluzone High-Dose 2018- (PF) 180 mcg/0.5 mL intramuscul ar syringe 08/06 completed Not Available Not Available Not Available Fluzone High-Dose Quad 2019- (PF) 240 mcg/0.7 mL IM syringe 08/06 completed Not Available Not Available Not Available BinaxNOW COVID-19 Ag Self Test kit Use as Directed on the Package 11/28 completed Not Available Not Available Not Available OneTouch UltraSoft 2 Lancet 30 gauge USE DIRECTED active Not Available Not Available No t Available Vitals Date Recorded Body height Body mass index (BMI) Body weight Heart rate Oxygen saturation Oxygen saturation in Arterial blood by Pulse oximetry Systolic blood pressure Diastolic blood pressure Provider Name and Address Organization Details Last Updated DateTime 3 150.5 cm 40.3 kg/m2 77966.0 7 g 93 /min 97 % 97 % 154 mm[Hg] 84 mm[Hg] Jasmina Post [facility] 3 12:01:22 Date Recorded Body height Body mass index (BMI) Body weight Heart rate Oxygen saturation Oxygen saturation in Arterial blood by Pulse oximetry Systolic blood pressure Diastolic blood pressure Provider Name and Address Organization Details Last Updated DateTime 4 150.5 cm 40.1 kg/m2 92719.4 7 g 70 /min 96 % 96 % 138 mm[Hg] 82 mm[Hg] Patricia Bernardo [facility] 4 13:54:47 Date Recorded Body height Body mass index (BMI) Body weight Heart rate Oxygen saturation Oxygen saturation in Arterial blood by Pulse oximetry Systolic blood pressure Diastolic blood pressure Provider Name and Address Organization Details Last Updated DateTime 4 150.5 cm 39.8 kg/m2 07728.0 9 g 71 /min 96 % 96 % 158 mm[Hg] 98 mm[Hg] Patricia Drew [facility] 4 13:40:47 Date Recorded Body height Body mass index (BMI) Body weight Heart rate Oxygen saturation Oxygen saturation in Arterial blood by Pulse oximetry Systolic blood pressure Diastolic blood pressure Provider Name and Address Organization Details Last Updated DateTime 4 150.5 cm 39.5 kg/m2 40827.7 g 64 /min 93 % 93 % 150 mm[Hg] 74 mm[Hg] Jasmina Post [facility] 4 14:46:43 Date Recorded Systolic blood pressure Diastolic blood pressure Provider Name and Address Organization Details Last Updated DateTime 07/06/2024 130 mm[Hg] 70 mm[Hg] Michael Montgomery, DO [address] [facility], [place], [address], [facility] 07/06/2024 15:04:48 Date Recorded Body height Body mass index (BMI) Body weight Heart rate Oxygen saturation Oxygen saturation in Arterial blood by Pulse oximetry Systolic blood pressure Diastolic blood pressure Provider Name and Address Organization Details Last Updated DateTime 4 150.5 cm 39.7 kg/m2 40852.0 1 g 88 /min 96 % 96 % 142 mm[Hg] 88 mm[Hg] Patricia Drew [facility] 4 10:17:41 Social History Question Answer Notes LastModified by Organizat ion Details LastModified Time Tobacco Smoking Status Never Smoker Not Available [facility] 08/07/2020 03:36:24 What Was The Date Of Your Most Recent Tobacco Screening? 08/08/2024 [email or web address] Information not available 08/08/2024 Do You Or Have You Ever Used Any Other Forms Of Tobacco Or Nicotine? No Information not available 08/08/2022 Sex: Unknown Functional Status None recorded. Mental Status None recorded. Family History Nothing Reported. Medical History Condition Response Coronary Artery Disease N Gout N Other N Kidney Stones N Blood Diseases N Blood Transfusion N Breast Cancer N Lung Disease N Depression N COPD N Defects or Inherited Disease N Anxiety Disorder N Muscle, Joint, or Bone Problems N Obesity N Vision or Eye Problems N Arthritis N Infertility N Polyps N Mental Disorder N Cancer N Stroke N Varicosities N Endometriosis N Bladder or Kidney Problems N High Cholesterol N Liver Disease N Fibromyalgia N Headaches N Kidney Disease N Allergies/Hayfever N Heart Problems N Hospitalizations N Thyroid Problems N GI Problems N Eating Disorder N Skin Problems N Anemia N MRSA exposure N Constipation N Mental Illness N Diabetes N Ovarian Cancer N Seizures/Epilepsy N Tuberculosis N Congestive Heart Failure (CHF) N Eczema N Abuse/Domestic Violence N Diverticulitis N Asthma N Reflux/GERD N Hepatitis N Heart Disease N Pulmonary Embolism N Hypertension N Chicken Pox N Autism Spectrum Disorder (ASD) N Osteoporosis N Gynecological History Statement/Question Response Most Recent Mammogram 12/23/2018 Obstetrics History GPAL:G 0 P 0 0 0 0 Immunizations Vaccine Type Date Status Note Provider Nam e and Address Organization Details Recorded Time Influenza, split virus, quadrivalent, preservative 1 completed Not Available [facility] 11/08/2023 03:59:46 COVID-19, mRNA, LNP-S, PF, 30 mcg/0.3 mL dose 1 completed Not Available [facility] 11/08/2023 03:59:46 pneumococcal polysaccharide PPV23 8 completed Not Available [facility] 11/08/2023 03:59:46 Influenza, split virus, quadrivalent, preservative 8 completed Not Available [facility] 11/08/2023 03:59:46 COVID-19, mRNA, LNP-S, PF, 30 mcg/0.3 mL dose 2 completed Not Available [facility] 11/08/2023 03:59:46 Influenza, split virus, quadrivalent, preservative 2 completed Not Available [facility] 11/08/2023 03:59:46 COVID-19, mRNA, LNP-S, PF, 30 mcg/0.3 mL dose 2 completed Not Available [facility] 11/08/2023 03:59:46 influenza nasal, unspecified formulation 3 completed Not Available [facility] 11/08/2023 03:59:46 SARS-COV-2 (COVID-19) vaccine, UNSPECIFIED 3 completed Not Available [facility] 11/08/2023 03:59:46 Pneumococcal conjugate PCV 13 7 completed Not Available [facility] 11/08/2023 03:59:46 zoster live 3 completed Not Available [facility] 11/08/2023 03:59:46 Influenza, split virus, quadrivalent, preservative 9 completed Not Available [facility] 11/08/2023 03:59:46 COVID-19, mRNA, LNP-S, PF, 30 mcg/0.3 mL dose 1 completed Not Available [facility] 11/08/2023 03:59:46 COVID-19, mRNA, LNP-S, PF, 30 mcg/0.3 mL dose 1 completed Not Available [facility] 11/08/2023 03:59:46 Past Encounters Encounter ID Performer Location Encounter Start Date Encounter Closed Date Diagnosis/Indication Diagnosis SNOMED-CT Code Diagnosis ICD10 Code Diagnosis Note [id number] Michael Montgomery [facility] [address] [facility] [address] 05/05/2018 10:58:06 05/05/2018 14:30:59 Hypertensive disorder 84838387 I10 home bps are superb Type 2 jorge betes mellitus 59874174 E11.9 doing great a1c 6.2 andwill decrease lisinopril to 2.5mg Hypercholesterolemia 136 50524 E78.00 cont 20mg of atorvastat rechk in 6 mo [id number] Michael Montgomery [facility] [address] [facility],[place] [address] 11/10/2018 09:56:50 11/10/2018 11:11:37 Hypertensive disorder 14598555 I10 home bps are superb Type 2 jorge betes mellitus 57328995 E11.9 doing great a1c 6.2 andwill decrease lisinopril to 2.5mg Hepatitis C screening 41 6216834 Z11.59 Screening for malignant neoplasm of colon 487137226 Z12.11 Screening mammography 24 714641 Z12.31 [id number] January SERGIO Ronquillo [facility] [address] [facility],[place] [address] 03/14/2019 15:23:23 03/14/2019 16:08:36 Pre-surgery evaluation 216035173 Z01.818 likely will be cleared, awaiting cmp as requested by eye doctor Macular hole 611017398 H 35.349 planned vitrectomy Essential hypertension 38054416 I10 well controlled [id number] Michael Montgomery [facility] [address] [facility] [address] 05/04/2019 11:09:20 05/04/2019 11:55:34 Hypertensive disorder 37651852 I10 home bps are superb at home and are running 120's sys low 70 diastol Type 2 jorge betes mellitus 02811607 E11.9 doing great a1c 6.5 and will decrease lisinopril to 2.5mg Hyperlipidemia 62706763 E78.5 [id number] Michael Montgomery [facility] [address] [facility],[place] [address] 10/12/2019 10:33:26 10/12/2019 10:54:08 Hypertensive disorder 01879242 I10 home bps are superb at home and are running 120's sys low 70 diastol Type 2 jorge betes mellitus 43238000 E11.9 doing great a1c 6.5 again and will also cont lisinopril to 2.5mg as the microalbum in levels are good Hyperlipidemia 87067296 E78.5 will increase to 40 mg [id number] Michael Montgomery DO [facility] [address] [facility],[place] [address] 05/02/2020 10:42:44 05/02/2020 12:19:32 Hypertensive disorder 52848718 I10 home bps are superb at home and are running 120's sys low 70 diastol still and is doing well Type 2 jorge betes mellitus 87049556 E11.9 doing great a1c is up to 7 was 6.5 and will need to adjust diet very quickly to turn this around will also cont lisinopril to 2.5mg as the microalbum in levels are good will check in 3 mo and see if we need to start treatment agian [id number] Michael Montgomery, [facility] [address] [address] 08/06/2020 10:17:38 08/06/2020 10:45:58 Type 2 diabetes mellitus 57684448 E11.9 doing great a1c is still at 7.0 and was up to 7 was 6.5 and will need to keep an eye on this will also cont lisinopril to 2.5mg as the microalbum in levels are good will check in 3 mo Hyperlipidemia 70561002 E78.5 increased to 40 mg Hypertensive disorder 38 419474 I10 home bps are superb at home and are running 120's sys low 70 diastol still and is doing well no issues Obstructiv e sleep apnea syndrome 83492771 G47.33 wears her cpap [id number] Michael Montgomery [facility] [address] [facility] [address] [address] 01/09/2021 11:23:18 01/09/2021 12:06:18 Type 2 diabetes mellitus 54832009 E11.9 doing great a1c is still at 6.8 and was 7.0 and was up to 7 was 6.5 and will need to keep an eye on this will also cont lisinopril to 2.5mg as the microalbum in levels are excellent will check in 3 mo Hyperlipidemia 74623952 E78.5 increased to 40 mg and LDL down to 120's Hdl in 50's Hypertensive disorder 38 794389 I10 home bps are superb at home and are running 120's sys low 70 diastol still and is doing well no issues [id number] Michael Montgomery [facility] [address] [facility] [address] [address] 05/29/2021 11:28:20 05/29/2021 12:35:34 Type 2 diabetes mellitus 21435761 E11.9 doing great a1c is still at 7.0 was 6.8 and was 7.0 and was up to 7 was 6.5 and will need to keep an eye on this will also cont lisinopril to 2.5mg as the microalbum in levels are excellent will check in 3 mo Hyperlipidemia 16255516 E78.5 hdl is still increased to 40 mg and LDL down to 118s Hdl Hypertensive disorder 38 941709 I10 home bps are superb at home and are running 120's sys low 70 diastol still and is doing well no issues [id number] Michael Montgomery [facility] [address] [facility] [address] [address] 09/23/2021 08:23:13 09/23/2021 13:42:22 Hypertensive disorder [id number] I10 home bps are superb at home and are running 130-40 's sys low 70 diastol still and is doing well no issuesno cp no sob Type 2 jorge betes mellitus 47804562 E11.9 doing great a1c is still doing great at 6.8 was 7.0 was 6.8 and was 7.0 and was up to 7 was 6.5 and will need to keep an eye on this will also cont lisinopril to 2.5mg as the microalbum in levels are excellent will check in 3 mo [id number] Michael Montgomery [facility] [address] [facility],[place] [address] 01/27/2022 11:15:28 01/27/2022 11:48:09 Type 2 diabetes mellitus 79676563 E11.9 doing great a1c is still doing great at6.7 was6.8 was 7.0 was 6.8 and was 7.0 and was up to 7 was 6.5 and will need to keep an eye on this will increase lisinopril to 5mg as the microalbum in levels are excellent but bp is up will check in 3 mo Hypertensive disorder 38 307449 I10 home bps are elevated and pulse is a bit higher too we will go back to 5 mg lisinopril and rech several mo no issuesno cp no sob Psoriasis 8507455 L40.9 uses halobeta with good results [id number] Michael Montgomery [facility] [address] [facility] [address] [address] 08/08/2022 10:44:57 08/08/2022 14:30:30 Hypertensive disorder 45367663 I10 home bps are elevated and pulse is a bit higher too we will go back to 5 mg lisinopril and rech several mo no issuesno cp no sob Type 2 jorge betes mellitus 62307864 E11.9 noted a1c is elevated at 7.3 she willwork on this and we will rechk Obstructiv e sleep apnea syndrome 60319456 G47.33 wears her cpap Advance care planning 71 3046008 Z71.89 done Active or passive immunization 656846960 Z23 patient advised he is due for flu shot, tdap & shingles Derangemen t of medial meniscus of right knee [id number] 57241 M23.203 has very pos denise [id number] Michael Montgomery [facility] [address] [facility], [place] [address] 11/28/2022 09:53:37 11/28/2022 11:08:34 Hypertensive disorder 25550974 I10 home bps are elevated and pulse is a bit higher too we will go back to 5 mg lisinopril and rech several mo no issuesno cp no sob Type 2 jorge betes mellitus 07883065 E11.9 noted a1c is elevated at 7.7 she will work on this and we will rechk but we will have her back on the glimepride 4mg Screening mammography 24 122870 Z12.31 [id number] Michael Montgomery [facility] [address] [facility], [place] [address] 02/18/2023 10:42:27 02/18/2023 12:29:55 Hypertensive disorder 56760461 I10 blood pressures are now looking goodno cp no sob Type 2 jorge betes mellitus 40598547 E11.9 noted a1c is now down to 6.6 and doing great where he was at 7.7 she will work on this and we will rechk but we will have her back on the glimepride 4mg [id number] Michael Montgomery DO [facility] Internal Medicine [address] [facility], [place] [address] 05/25/2023 10:36:46 05/25/2023 11:26:00 Hyperlipidemia 61453395 E78.5 hdl is still increased to 40 mg and LDL down to 118s Hdl Hypertensive disorder 38 111850 I10 blood pressures are now looking good an are excellent with home readings avg 130/70no cp no sob Type 2 jorge betes mellitus 01034917 E11.9 noted a1c is now down to 6.3 and prior was 6.6 and doing great where he was at 7.7 she will work on this and we will rechk but we will have her back on the glimepride 4mg Osteoarthr itis of left knee joint [id number] 90867 M17.12 getting worse with episodes of pain simona when twisting knee [id number] Michael Montgomery [facility] [address] [facility] [address],[place] [address] 09/21/2023 11:53:41 09/21/2023 13:41:08 Hyperlipidemia 33558378 E78.5 hdl is still increased to 40 mg and LDL down to 118s Hdl Hypertensive disorder 38 674712 I10 blood pressures are now looking good an are excellent with home readings avg 130/70no cp no sob Type 2 jorge betes mellitus 79035147 E11.9 noted a1c is now up to 7.0 was down to 6.3 and prior was 6.6 and doing great where he was at 7.7 she will work on this as she had been doing a lot of treating with travel and holidays and we will rechk but we will have her back on the glimepride 4mg [id number] Michael Montgomery DO [facility] Internal Medicine [address] [facility] [address] [address] 01/25/2024 13:44:16 01/25/2024 14:33:26 Hyperlipidemia 64347928 E78.5 hdl is still increased to 40 mg and LDL down to 118s Hdl Hypertensive disorder 38 381074 I10 blood pressures are now looking good an are excellent with home readings avg 130/70no cp no sob Type 2 jorge betes mellitus 25803886 E11.9 noted a1c is now up to 7.0 was down to 6.3 and prior was 6.6 and doing great where he was at 7.7 she will work on this as she had been doing a lot of treating with travel and holidays and we will rechk but we will have her back on the glimepride 4mg Bradycardia [id number] R00 .1 will get ecg to check timing and MT intervals etc Painless r ectal bleeding 714552548 K62.5 [id number] Michael Agostomechelle [facility] [address] [facility],[place] [address] 03/16/2024 13:30:57 03/16/2024 14:29:53 Depression screening 288003301 Z13.31 SCREENING NEGATIVE Dyspnea on exertion 6084 5006 R06.09 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 [id number] Michael Agostomechelle [facility] [address] [facility],[place] [address] 07/06/2024 14:41:10 07/06/2024 15:13:11 Hypertensive disorder 23681755 I10 blood pressures are now looking good an are excellent with home readings avg 130/70no cp no sob Type 2 jorge betes mellitus 01241140 E11.9 noted a1c is now up to 7.0 was down to 6.3 and prior was 6.6 and doing great where he was at 7.7 she will work on this as she had been doing a lot of treating with travel and holidays and we will rechk but we will have her back on the glimepride 4mg Pain of le ft shoulder joint [id number] 3509088 M25.512 needs an mri major start with xr Cervical radiculopathy 56548289 M54.12 prob need for mri given hx of deg ds will order new xr [id number] RALPH MERCADO [facility] Internal Medicine [address] [facility],[place] [address] 08/08/2024 10:12:46 08/08/2024 10:29:02 Pre-surgery evaluation [id number] Z01.818 The patient was seen in the office today for pre-op evaluation . All medical conditions on patient's problem list were addressed and are currently stable, no interventi on needed at this time. Based on history and physical performed, the patient is cleared for surgery. Type 2 jorge betes mellitus 07246738 E11.9 stable Hypertensive disorder 38 250596 I10 stable Health Concerns Section Related Observation LastModified by Organization Detai ls LastModified Time None Recorded Concern Status LastModified by Organization Details LastModified Time None Recorded Advance Directives Directive None Recorded Payers Encounter Date Sequence Insurance Name Policy Number Policy Diaz Covered Member ID Diaz Member ID Guarantor Name 09/21/2023 1 [place] PPO) [id number] Latonya A Vick [id number] Latonya A Vick 01/25/2024 1 [place]) [id number] Latonya A Vick [id number] Latonya A Vick 03/16/2024 1 [place] PPO) [id number] Latonya A Vick [id number] Latonya A Vick 07/06/2024 1 [place] PPO) [id number] Latonya A Vick [id number] Latonya A Vick 08/08/2024 1 [place] PPO) [id number] Latonya A Vick [id number] Latonya A Vick Notes Date Note Type Note Provider Name and Address Organization Details Recorded Time 3 text/htm l Care Management - DiabetesReported bypatient.Self Care:seeing eye doctor yearly for dilated eye exam; checking feet regularly; normal range of home blood sugars (in the low 100s); no side effects from medications Associated Symptoms:symptoms are usually well controlled; no fatigue; no dizziness; no excessive sweating; no headaches; no confusion; no increased thirst; no increased appetite; no increased urination; no blurred vision; no numbness of feet; no calluses on feetCare Management - HypertensionReported bypatient.Self Care:not under emotional stress Severity:symptoms are improving; does not interfere with daily activities Associated Symptoms:no dizziness; no lightheadedness; no chest pain; no shortness of breath; no palpitations; no edema; no calf muscle cramps; no blurred vision; no confusion; no headaches; no fatigue here for rechk and is doing ok overallhome bp readings are 130sys and 60-70 diast avgno cp no soband her low back is doing great! Michael Montgomery DO [address] [place], [address], [facility] 09/21/2023 12:21:26 4 text/htm l Care Management - DiabetesReported bypatient.Self Care:seeing eye doctor yearly for dilated eye exam; checking feet regularly; normal range of home blood sugars (in the low 100s); no side effects from medications Associated Symptoms:symptoms are usually well controlled; no fatigue; no dizziness; no excessive sweating; no headaches; no confusion; no increased thirst; no increased appetite; no increased urination; no blurred vision; no numbness of feet; no calluses on feetCare Management - HypertensionReported bypatient.Self Care:not under emotional stress Severity:symptoms are improving; does not interfere with daily activities Associated Symptoms:no dizziness; no lightheadedness; no chest pain; no shortness of breath; no palpitations; no edema; no calf muscle cramps; no blurred vision; no confusion; no headaches; no fatigue here for rechk and is doing ok 'relates has noted occ low pulse rate also she had noted 2 episodes of brbpr that lasted after a bout of diarrheaback in august and again in nov went to ER had been referred to gi and was never called , sent to [facility] [place] but was never calledhere for rechk and is doing ok overallhome bp readings are 130sys and 60-70 diast avgno cp no soband her low back is ok does get back pain on occ Michael Montgomery DO [address] [place], [address], [facility] 01/25/2024 14:19:52 4 text/htm l Care Management - DiabetesReported bypatient.Self Care:seeing eye doctor yearly for dilated eye exam; checking feet regularly; normal range of home blood sugars (in the low 100s); no side effects from medications Associated Symptoms:symptoms are usually well controlled; no fatigue; no dizziness; no excessive sweating; no headaches; no confusion; no increased thirst; no increased appetite; no increased urination; no blurred vision; no numbness of feet; no calluses on feetCare Management - HypertensionReported bypatient.Self Care:not under emotional stress Severity:symptoms are improving; does not interfere with daily activities Associated Symptoms:no dizziness; no lightheadedness; no chest pain; no shortness of breath; no palpitations; no edema; no calf muscle cramps; no blurred vision; no confusion; no headaches; no fatigue here for rechk and discussion re the evid of LBBB in setting of dm hx and bp and cholesterol and family hxhome bp are excellent Michael Montgomery DO [address] [place] [address], [phone], [facility] 03/16/2024 14:18:06 4 text/htm l Care Management - DiabetesReported bypatient.Self Care:seeing eye doctor yearly for dilated eye exam; checking feet regularly; normal range of home blood sugars (in the low 100s); no side effects from medications Associated Symptoms:symptoms are usually well controlled; no fatigue; no dizziness; no excessive sweating; no headaches; no confusion; no increased thirst; no increased appetite; no increased urination; no blurred vision; no numbness of feet; no calluses on feetCare Management - HypertensionReported bypatient.Self Care:not under emotional stress Severity:symptoms are improving; does not interfere with daily activities Associated Symptoms:no dizziness; no lightheadedness; no chest pain; no shortness of breath; no palpitations; no edema; no calf muscle cramps; no blurred vision; no confusion; no headaches; no fatigue here for mwv and is doing ok except having prob with her left shoulder and arma1c is 6.9 and 7.1 Michael Montgomery DO [address] [place] [address], [phone], [facility] 07/06/2024 15:12:55 4 text/htm l Pre-OpReported bypatient.Surgery to be Performed:Bilateral cataract surgery Left eye first Right eye second Context/Condition Being Addressed:with Dr. Ruiz Location:bilateral eye Severity:moderate Risk Factorsno cognitive impairment; no functional impairment; no malnutrition; no frailty; able to climb a flight of stairs (exercise capacity>4 METS); no obstructive sleep apnea; non-smoker; no alcohol misuse; no illicit drug use; no chronic cardiopulmonary condition; not obese;chronic cardiopulmonary condition(HTN, controlled) Anesthesia hx:no hx of anesthesia complications; no allergy to anesthetic agents; no family history of anesthesia complications Functional Ability:able to walk up stairs; able to perform heavy work around the house; no difficulty walking up hills; able to walk 4 mph Post-Op Support:adequate assistance at home () RALPH MERCADO [address] [place] [address], [phone], [facility] 08/08/2024 10:28:55 OBGyn Episode No OBEpisode recorded.
[2024-10-28 13:06] LABS: Estimated Average Glucose 157 mg/dL; Hemoglobin A1C 192.1624 umol/L; Hemoglobin A1c % 7.1 % (<6.0); Total Hemoglobin (HGBA1C) 3524.8225 umol/L
== END 2024-10-28 10:43 | disposition home or self-care (01) ==
LOC: HO.WFDLDS 10:42
PROVIDERS: Visit Provider Internal Medicine
DX: E11.9 Type 2 diabetes mellitus without complications (principal)
CPT/HCPCS: 36415; 83036

== ENCOUNTER 2024-12-12 08:23 | Outpatient (REF) | payer MEDICARE, SELFPAY ==
--- OUTSIDE RECORDS SUMMARY | 2024-12-12 08:34 | XMS_ITS | Data Portability ---
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) [facility] MODERATE MUST MEET 2 OUT OF 3 [...] THAT IS COVERED Not available 07/06/2024 15:06:37 11/04/2024 11/04/2024 [id number] [place] [address] (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) [facility] MODERATE MUST MEET 2 OUT OF [...] EACH ELEMENT THAT IS COVERED Not available 11/04/2024 12:16:04 Plan of Treatment Reminders Order Date Submit Date Provider Last Modified By Organization Details Last Modified Time Details Appointments FOLLOW UP 15 2024 10:30A M DR MONTGOMERY Not available Not available Not available Lab CBC 2024 025 [facility], [address] [place] [address], [address], 11/04/2024 12:20:41 vitamin D, 25-hydrox y, total, serum 2024 025 [facility], [address] [place] [address], [address], 11/04/2024 12:20:41 HbA1c (hemoglob in A1c), blood 2024 025 [facility], [address] [place] [address], [address], 11/04/2024 12:20:41 lipid panel, serum 2024 025 [facility], [address] [place] [address], [address], 11/04/2024 12:20:41 CMP, serum or plasma 2024 025 [facility], [address] [facility], [place], [address], 11/04/2024 12:20:41 CBC w/ auto diff 2024 025 [facility], [address] [place] [address], [address], 11/04/2024 12:20:41 CBC 2023 024 [facility], [address] [place] [address], [address], 05/19/2024 11:13:39 Referral general surgeon referral 2023 024 [facility], [address] [place], [address], 01/25/2024 14:41:32 Procedures None recorded. Surgeries None recorded. Imaging XR, shoulder, 2 or more view 2023 024 [facility], [address] [place], [address], 07/07/2024 08:25:23 XR, cervical spine, 2 or 3 view 2023 024 [facility], [address] [place], [address], 07/07/2024 10:21:12 pharmacol ogic nuclear stress test - patient has LBBB please note this 2023 024 [email or web address] Not available 03/21/2024 09:23:07 electroca rdiogram 2023 024 [email or web address] [facility] (Echocardiolo gy Lab), [address] [place], [address], 02/08/2024 08:28:14 Medication Orders hydrocort isone 2.5 % topical cream with perineal applicato r 2024 025 [facility], [place], [address], 11/04/2024 12:23:09 Patient TargetsNo targets recorded. Patient Instructions Encounter Date Encounter Id Patient Instructions Last Modified By Organization Details Last Modified Time 01/25/2024 [id number] bradycardia: car e instructions Not available 01/25/2024 14:09:14 07/06/2024 [id number] learning about type 2 diabetes Not available 07/06/2024 15:09:01 type 2 diabetes: care instructions Not available 07/06/2024 15:09:01 11/04/2024 [id number] hemorrhoids: car e instructions Not available 11/04/2024 12:23:07 Reason for Referral General Surgeon Referral for Painless rectal bleeding Referring Physician: Michael Montgomery, Internal Medicine, Encounter Date: 01/25/2024 Results Created Date Observation Date Name Description Value Unit Range Abnormal Flag Note LastModifiedBy Organization Detail LastModifiedTime 01/29/20 24 01/29/2024 elect chiqui arriola am No observ ation record ed. [email or web address] [facility] [address], [address], 02/03/2024 08:58:14 04/06/20 24 04/06/2024 pharm acolo gic nucle ar stres s test No observ ation record ed. [email or web address] [address], [address], 04/11/2024 11:57:19 07/07/20 24 07/06/2024 XR, shoul zahira, 2 or more view No observ ation record ed. [facility] [address] [facility] [address], [place], [address], 07/11/2024 09:38:34 07/07/20 24 07/06/2024 XR, cervi chato spine , 2 or 3 view No observ ation record ed. [facility] [address] [facility] [address], [place], [address], 07/11/2024 09:38:34 08/22/20 24 08/21/2024 MRI, robles rodriges, w/o contr ast No observ ation record ed. [email or web address] [address], [place], [address], 08/26/2024 09:33:42 Result Notes None recorded. Problems Name Problem SNOMED Code Status Onset Date Resolution Date Notes Provider Name and Address Organization Details Recorded Time History of appendect oli 596292043 Active 2017 1962 Not Available [facility] 4 03:59:46 Allergic rhinitis 21902230 Active 2017 Not Available [facility] 4 03:59:46 Hypertens ifeoma disorder 11490496 Active 2017 Not Available [facility] 4 03:59:46 Hyperlipi demia 58338355 Active 2017 Not Available [facility] 4 03:59:46 Menopause Active 2017 Not Available [facility] 4 03:59:45 Psoriasis 5768089 Active 2017 Not Available [facility] 4 03:59:46 Obstructi ve sleep apnea syndrome 51498400 Active 2017 Not Available [facility] 4 03:59:46 Type 2 diabetes mellitus 54246768 Active 2017 Not Available [facility] 4 03:59:46 Macular hole 988613090 Active 2018 Not Available [facility] 4 03:59:45 Derangeme nt of medial meniscus of right knee 580231451679 106 Active 2021 Not Available [facility] 4 03:59:45 Osteoarth ritis of left knee joint 052395941988 109 Active 2022 Not Available [facility] 4 03:59:46 Acute urinary tract infection 721752529 Active 2022 Not Available [facility] 4 03:59:46 Proctocol itis 894229490 Active 2023 Michael Montgomery, DO [address] [place] [address], [address], [facility] 4 19:17:28 Abdominal pain 48351206 Active 2023 RALPH MERCADO [address] [place] [address], [address], [facility] 4 13:34:36 Bradycard ia 07938033 Active 2023 Michael Montgomery, DO [address] [place] [address], [address], [facility] 4 14:08:14 Painless rectal bleeding 909844407 Active 2023 Michael Montgomery DO [address] [place] [address], [address], [facility] 4 14:13:47 Dyspnea on exertion 94035865 Active 2023 Michael Montgomery, DO [address] [place] [address], [address], [facility] 4 14:13:37 Left bundle branch block 43049811 Active 2023 Michael Montgomery DO [address] [place] [address], [address], [facility] 4 14:14:14 Pain of left shoulder joint 263744285880 28664 Active 2023 Michael Montgomery, DO [address] [place] [address], [address], [facility] 4 15:06:48 Cervical radiculop athy 06520833 Active 2023 Michael Montgomery DO [address] [place] [address], [address], [facility] 4 15:07:41 Rupture of rotator cuff of left shoulder 753836400796 98303 Active 2023 Michael Montgomery DO [address] [place] [address], [address], [facility] 4 23:27:20 Impingeme nt syndrome of left shoulder region 822910205449 104 Active 2023 Michael Montgomery [address] [place] [address], [address], [facility] 4 09:39:20 Hemorrhoi ds 06251995 Active [address] [place] [address], [address], [facility] 5 12:22:15 Problem Notes None recorded. Procedures Surgical History Date Name Laterality Status Provider Name and Address Organization Details Recorded Time 9 Most Recent Mammogram completed Eloise Perla [facility] 03/11/2019 16:30:52 Imaging Results Imaging Date Name Status LastModified by Organization Details LastModified Time 01/29/2024 electrocardiogram completed [email or web address] [facility] [address], [address], 02/03/2024 08:58:14 04/06/2024 pharmacologic nuclear stress test [email or web address] [address], [address], 04/11/2024 11:57:19 07/06/2024 XR, shoulder, 2 or more view completed [address], [place], [address], 07/11/2024 09:38:34 07/06/2024 XR, cervical spine, 2 or [address] view completed [address], [place], [address], 07/11/2024 09:38:34 08/21/2024 MRI, shoulder, w/o contrast completed [email or web address] [address], [address], 08/26/2024 09:33:42 Procedure Notes None recorded. Medical [...] 40 mg tablet TAKE 1 TABLET DAILY active Not Available Not Available No t Available sulfamethox azole 800 mg-trimetho prim 160 mg tablet TAKE 1 TABLET BY MOUTH EVERY 12 HOURS FOR 5 DAYS 01/24 completed Not Available Not Available Not Available hydrocortis one 2.5 % topical cream with perineal applicator APPLY A THIN LAYER TO THE AFFECTED AREA(S) TOPICALLY 2 TO 4 TIMES DAILY active Not Available Not Available No t Available prednisolon e acetate 1 % eye [...] Available Not Available No t Available Fluad 2016- 65yr up(PF)45 mcg(15 mcgx3)/0.5 mL intramuscul ar syringe 05/05 completed Not Available Not Available Not Available Fluzone High-Dose 8689-7177 (PF) 180 mcg/0.5 mL intramuscul ar syringe 11/10 completed Not Available Not Available Not Available OneTouch Ultra2 Meter USE DIRECTED 2024 active Not Available Not Available Not Avai lable Fluzone High-Dose 2019-20 (PF) 180 mcg/0.5 mL intramuscul ar syringe [...] Updated DateTime 4 150.5 cm 40.1 kg/m2 17715.4 7 g 70 /min 96 % 96 % 138 mm[Hg] 82 mm[Hg] Patricia Mont[facility] 4 13:54:47 Date Recorded Body height Body mass index (BMI) Body weight Heart rate Oxygen saturation Oxygen saturation in Arterial blood by Pulse oximetry Systolic blood pressure Diastolic blood pressure Provider Name and Address Organization Details Last Updated DateTime 4 150.5 cm 39.8 kg/m2 76454.0 9 g 71 /min 96 % 96 % 158 mm[Hg] 98 mm[Hg] Patricia Bernardo [facility] 4 13:40:47 Date Recorded Body height Body mass index (BMI) Body weight Heart rate Oxygen saturation Oxygen saturation in Arterial blood by Pulse oximetry Systolic blood pressure Diastolic blood pressure Provider Name and Address Organization Details Last Updated DateTime 4 150.5 cm 39.5 kg/m2 15007.7 g 64 /min 93 % 93 % 150 mm[Hg] 74 mm[Hg] Jasmina Post [facility] 4 14:46:43 Date Recorded Systolic blood pressure Diastolic blood pressure Provider Name and Address Organization Details Last Updated DateTime 07/06/2024 130 mm[Hg] 70 mm[Hg] Michael Montgomery, DO [address] [place] [address], [place], [address], [facility] 07/06/2024 15:04:48 Date Recorded Body height Body mass index (BMI) Body weight Heart rate Oxygen saturation Oxygen saturation in Arterial blood by Pulse oximetry Systolic blood pressure Diastolic blood pressure Provider Name and Address Organization Details Last Updated DateTime 4 150.5 cm 39.7 kg/m2 45794.0 1 g 88 /min 96 % 96 % 142 mm[Hg] 88 mm[Hg] Patricai Bernardo [facility] 4 10:17:41 Date Recorded Body height Body mass index (BMI) Body weight Heart rate Oxygen saturation Oxygen saturation in Arterial blood by Pulse oximetry Systolic blood pressure Diastolic blood pressure Provider Name and Address Organization Details Last Updated DateTime 5 150.5 cm 39.7 kg/m2 82824.2 9 g 72 /min 98 % 98 % 150 mm[Hg] 80 mm[Hg] Jasmina Post [facility] 5 11:39:08 Social History Question Answer Notes LastModified by Organizat ion Details LastModified Time Tobacco Smoking Status Never Smoker Not Available [facility] 08/07/2020 03:36:24 What Was The Date Of Your Most Recent Tobacco Screening? 11/04/2024 [email or web address] Information not available 11/04/2024 Do You Or Have You Ever Used [...] virus, quadrivalent, preservative 1 completed Not Available [facility] 11/08/2023 03:59:46 COVID-19, mRNA, LNP-S, PF, 30 mcg/0.3 mL dose 1 completed Not Available [facility] 11/08/2023 03:59:46 pneumococcal polysaccharide PPV23 8 completed Not Available [facility] 11/08/2023 03:59:46 Influenza, split virus, quadrivalent, preservative 8 completed Not Available [facility] 11/08/2023 03:59:46 COVID-19, mRNA, LNP-S, PF, 30 mcg/0.3 mL dose 2 completed Not Available [facility] 11/08/2023 03:59:46 Influenza, split virus, quadrivalent, preservative 2 completed Not Available [facility] 11/08/2023 03:59:46 COVID-19, mRNA, LNP-S, PF, 30 mcg/0.3 mL dose 2 completed Not Available [facility] 11/08/2023 03:59:46 influenza nasal, unspecified formulation 3 completed Not Available [facility] 11/08/2023 03:59:46 SARS-COV-2 (COVID-19) vaccine, UNSPECIFIED 3 completed Not Available [facility] 11/08/2023 03:59:46 Pneumococcal conjugate PCV 13 7 completed Not Available [facility] 11/08/2023 03:59:46 zoster live 3 completed Not Available [facility] 11/08/2023 03:59:46 Influenza, split virus, quadrivalent, preservative 9 completed Not Available [facility] 11/08/2023 03:59:46 COVID-19, mRNA, LNP-S, PF, 30 mcg/0.3 mL dose 1 completed Not Available [facility] 11/08/2023 03:59:46 COVID-19, mRNA, LNP-S, PF, 30 mcg/0.3 mL dose 1 completed Not Available [facility] 11/08/2023 03:59:46 Past Encounters Encounter ID Performer Location Encounter Start Date Encounter Closed Date Diagnosis/Indication Diagnosis SNOMED-CT Code Diagnosis ICD10 Code Diagnosis Note [id number] Michael Montgomery DO [facility] [address] [facility], [place] [address] 05/05/2018 10:58:06 05/05/2018 14:30:59 Hypertensive disorder 55459702 I10 home bps are superb Type 2 jorge betes mellitus 60258009 E11.9 doing great a1c 6.2 andwill decrease lisinopril to 2.5mg Hypercholesterolemia 136 30542 E78.00 cont 20mg of atorvastat rechk in 6 mo [id number] Michael Montgomery DO [facility] [address] [facility],[place] [address] 11/10/2018 09:56:50 11/10/2018 11:11:37 Hypertensive disorder 50669351 I10 home bps are superb Type 2 jorge betes mellitus 43181086 E11.9 doing great a1c 6.2 andwill decrease lisinopril to 2.5mg Hepatitis C screening 41 8442453 Z11.59 Screening for malignant neoplasm of colon 986210355 Z12.11 Screening mammography 24 084671 Z12.31 [id number] January LILI RonquilloKAIA [facility] [address] [facility],[place] [address] 03/14/2019 15:23:23 03/14/2019 16:08:36 Pre-surgery evaluation 762543291 Z01.818 likely will be cleared, awaiting cmp as requested by eye doctor Macular hole 662778452 H 35.349 planned vitrectomy Essential hypertension 20904876 I10 well controlled [id number] Michael Montgomery DO [facility] [address] [facility] [place] [address],[place] [facility] [place] [address] 05/04/2019 11:09:20 05/04/2019 11:55:34 Hypertensive disorder 27474729 I10 home bps are superb at home and are running 120's sys low 70 diastol Type 2 jorge betes mellitus 05260424 E11.9 doing great a1c 6.5 and will decrease lisinopril to 2.5mg Hyperlipidemia 68081947 E78.5 [id number] Michael Montgomery DO [facility] [address] [facility] [address], ite [facility] [place] [address] 10/12/2019 10:33:26 10/12/2019 10:54:08 Hypertensive disorder 88801548 I10 home bps are superb at home and are running 120's sys low 70 diastol Type 2 jorge betes mellitus 13352521 E11.9 doing great a1c 6.5 again and will also cont lisinopril to 2.5mg as the microalbum in levels are good Hyperlipidemia 51108666 E78.5 will increase to 40 mg [id number] Michael Montgomery DO [facility] [address] [facility] [address], [place] [address] 05/02/2020 10:42:44 05/02/2020 12:19:32 Hypertensive disorder 97837890 I10 home bps are superb at home and are running 120's sys low 70 diastol still and is doing well Type 2 jorge betes mellitus 71633105 E11.9 doing great a1c is up to 7 was 6.5 and will need to adjust diet very quickly to turn this around will also cont lisinopril to 2.5mg as the microalbum in levels are good will check in 3 mo and see if we need to start treatment agian [id number] Michael Montgomery DO [facility] [address] [facility] [address] [address] 08/06/2020 10:17:38 08/06/2020 10:45:58 Type 2 diabetes mellitus 83945440 E11.9 doing great a1c is still at 7.0 and was up to 7 was 6.5 and will need to keep an eye on this will also cont lisinopril to 2.5mg as the microalbum in levels are good will check in 3 mo Hyperlipidemia 59522148 E78.5 increased to 40 mg Hypertensive disorder 38 604743 I10 home bps are superb at home and are running 120's sys low 70 diastol still and is doing well no issues Obstructiv e sleep apnea syndrome 00906471 G47.33 wears her cpap [id number] Michael Montgomery [facility] [address] [facility] [address] [address] 01/09/2021 11:23:18 01/09/2021 12:06:18 Type 2 diabetes mellitus 64937957 E11.9 doing great a1c is still at 6.8 and was 7.0 and was up to 7 was 6.5 and will need to keep an eye on this will also cont lisinopril to 2.5mg as the microalbum in levels are excellent will check in 3 mo Hyperlipidemia 42161301 E78.5 increased to 40 mg and LDL down to 120's Hdl in 50's Hypertensive disorder 38 904818 I10 home bps are superb at home and are running 120's sys low 70 diastol still and is doing well no issues [id number] Michael Montgomery DO [facility] [address] [facility] [address] [address] 05/29/2021 11:28:20 05/29/2021 12:35:34 Type 2 diabetes mellitus 92822841 E11.9 doing great a1c is still at 7.0 was 6.8 and was 7.0 and was up to 7 was 6.5 and will need to keep an eye on this will also cont lisinopril to 2.5mg as the microalbum in levels are excellent will check in 3 mo Hyperlipidemia 69122417 E78.5 hdl is still increased to 40 mg and LDL down to 118s Hdl Hypertensive disorder 38 388970 I10 home bps are superb at home and are running 120's sys low 70 diastol still and is doing well no issues [id number] Michael Montgomery [facility] [address] [facility],[place] [facility] [place] [address] 09/23/2021 08:23:13 09/23/2021 13:42:22 Hypertensive disorder 66743644 I10 home bps are superb at home and are running 130-40 's sys low 70 diastol still and is doing well no issuesno cp no sob Type 2 jorge betes mellitus 01148828 E11.9 doing great a1c is still doing great at 6.8 was 7.0 was 6.8 and was 7.0 and was up to 7 was 6.5 and will need to keep an eye on this will also cont lisinopril to 2.5mg as the microalbum in levels are excellent will check in 3 mo [id number] Michael Montgomery [facility] [address] [facility],[place] [address] 01/27/2022 11:15:28 01/27/2022 11:48:09 Type 2 diabetes mellitus 92286342 E11.9 doing great a1c is still doing great at6.7 was6.8 was 7.0 was 6.8 and was 7.0 and was up to 7 was 6.5 and will need to keep an eye on this will increase lisinopril to 5mg as the microalbum in levels are excellent but bp is up will check in 3 mo Hypertensive disorder 38 984387 I10 home bps are elevated and pulse is a bit higher too we will go back to 5 mg lisinopril and rech several mo no issuesno cp no sob Psoriasis 1876790 L40.9 uses halobeta with good results [id number] Michael Montgomery [facility] [address] [facility],[place] [facility] [place] [address] 08/08/2022 10:44:57 08/08/2022 14:30:30 Hypertensive disorder 94471503 I10 home bps are elevated and pulse is a bit higher too we will go back to 5 mg lisinopril and rech several mo no issuesno cp no sob Type 2 jorge betes mellitus 83151951 E11.9 noted a1c is elevated at 7.3 she willwork on this and we will rechk Obstructiv e sleep apnea syndrome 83882962 G47.33 wears her cpap Advance care planning 71 1264847 Z71.89 done Active or passive immunization 526092959 Z23 patient advised he is due for flu shot, tdap & shingles Derangemen t of medial meniscus of right knee 5120036374 08995 M23.203 has very pos denise [id number] Michael Montgomery [facility] [address] [facility] [address],[place] [address] 11/28/2022 09:53:37 11/28/2022 11:08:34 Hypertensive disorder 57167226 I10 home bps are elevated and pulse is a bit higher too we will go back to 5 mg lisinopril and rech several mo no issuesno cp no sob Type 2 jorge betes mellitus 48653571 E11.9 noted a1c is elevated at 7.7 she will work on this and we will rechk but we will have her back on the glimepride 4mg Screening mammography 24 403861 Z12.31 [id number] Michael Montgomery [facility] [address] [facility] [address],[place] [facility] [place] [address] 02/18/2023 10:42:27 02/18/2023 12:29:55 Hypertensive disorder 22891871 I10 blood pressures are now looking goodno cp no sob Type 2 jorge betes mellitus 62953002 E11.9 noted a1c is now down to 6.6 and doing great where he was at 7.7 she will work on this and we will rechk but we will have her back on the glimepride 4mg [id number] Michael Montgomery DO [facility] [address] [facility] [address],[place] [address] 05/25/2023 10:36:46 05/25/2023 11:26:00 Hyperlipidemia 08460526 E78.5 hdl is still increased to 40 mg and LDL down to 118s Hdl Hypertensive disorder 38 970699 I10 blood pressures are now looking good an are excellent with home readings avg 130/70no cp no sob Type 2 jorge betes mellitus 76977774 E11.9 noted a1c is now down to 6.3 and prior was 6.6 and doing great where he was at 7.7 she will work on this and we will rechk but we will have her back on the glimepride 4mg Osteoarthr itis of left knee joint 3556357384 75215 M17.12 getting worse with episodes of pain simona when twisting knee [id number] Michael Montgomery [facility] [address] [facility],[place] [address] 09/21/2023 11:53:41 09/21/2023 13:41:08 Hyperlipidemia 52656585 E78.5 hdl is still increased to 40 mg and LDL down to 118s Hdl Hypertensive disorder 38 425273 I10 blood pressures are now looking good an are excellent with home readings avg 130/70no cp no sob Type 2 jorge betes mellitus 35813585 E11.9 noted a1c is now up to 7.0 was down to 6.3 and prior was 6.6 and doing great where he was at 7.7 she will work on this as she had been doing a lot of treating with travel and holidays and we will rechk but we will have her back on the glimepride 4mg [id number] Michael Montgomery [facility] Internal Medicine [address] [facility] [address] [place] [address] 01/25/2024 13:44:16 01/25/2024 14:33:26 Hyperlipidemia 22959940 E78.5 hdl is still increased to 40 mg and LDL down to 118s Hdl Hypertensive disorder 38 387298 I10 blood pressures are now looking good an are excellent with home readings avg 130/70no cp no sob Type 2 jorge betes mellitus [id number] E11.9 noted a1c is now up to 7.0 was down to 6.3 and prior was 6.6 and doing great where he was at 7.7 she will work on this as she had been doing a lot of treating with travel and holidays and we will rechk but we will have her back on the glimepride 4mg Bradycardia 12152103 R00 .1 will get ecg to check timing and IN intervals etc Painless r ectal bleeding [id number] K62.5 [id number] Michael Montgomery [facility] Internal Medicine [address] [facility], [place] [address] 03/16/2024 13:30:57 03/16/2024 14:29:53 Depression screening [id number] Z13.31 SCREENING NEGATIVE Dyspnea on exertion 6084 5006 R06.09 Left bundl e branch block 67269268 I44.7 [id number] Michael Montgomery [facility] Internal Medicine [address] [facility], [place], [place] 7 07/06/2024 14:41:10 07/06/2024 15:13:11 Hypertensive disorder 29121962 I10 blood pressures are now looking good an are excellent with home readings avg 130/70no cp no sob Type 2 jorge betes mellitus 25153837 E11.9 noted a1c is now up to 7.0 was down to 6.3 and prior was 6.6 and doing great where he was at 7.7 she will work on this as she had been doing a lot of treating with travel and holidays and we will rechk but we will have her back on the glimepride 4mg Pain of le ft shoulder joint [id number] M25.512 needs an mri major start with xr Cervical radiculopathy 03733226 M54.12 prob need for mri given hx of deg ds will order new xr [id number] RALPH MERCADO [facility] Internal Medicine [address] [facility], [place] [address] 08/08/2024 10:12:46 08/08/2024 10:29:02 Pre-surgery evaluation [id number] Z01.818 The patient was seen in the office today for pre-op evaluation . All medical conditions on patient's problem list were addressed and are currently stable, no interventi on needed at this time. Based on history and physical performed, the patient is cleared for surgery. Type 2 jorge betes mellitus 19567616 E11.9 stable Hypertensive disorder 38 468643 I10 stable [id number] DO Tiana Rodriguez Internal Medicine [address] [facility] [address],[place] [address] 11/04/2024 11:29:02 11/04/2024 12:26:27 Hyperlipidemia 69966567 E78.5 hdl is still increased to 40 mg and LDL down to 118s Hdl Hypertensive disorder 38 346699 I10 blood pressures are now looking good an are excellent with home readings avg 130/70-80' sno cp no sob Type 2 jorge betes mellitus 31181697 E11.9 noted a1c is 7.1 was 7.0 so is the same was down to 6.3 and prior was 6.6 and doing great where he was at 7.7 she will work on this as she had been doing a lot of treating with travel and holidays and we will rechk but we will have her back on the glimepride 4mg Hemorrhoids 37046709 K64 .9 Health Concerns Section Related Observation LastModified by Organization Detai ls LastModified Time None Recorded Concern Status LastModified by Organization Details LastModified Time None Recorded Advance Directives Directive None Recorded Payers Encounter Date Sequence Insurance Name Policy Number Policy Diaz Covered Member ID Diaz Member ID Guarantor Name 01/25/[address] [facility]ARE [place]PLACEMENT PPO) [id number] Latonya A Vick [id number] Latonya A Vick 03/16/2024 1 [place]PO) [id number] Latonya A Vick [id number] Latonya A Vick 07/06/2024 1 [place] PPO) [id number] Latonya A Vick [id number] Latonya A Vick 08/08/2024 1 [place]PO) [id number] Latonya A Vick [id number] Latonya [place] 11/04/[address] [facility] [place] PPO) [id number] Latonya Covingtone [id number] Latonya Hickman Notes Date Note Type Note Provider Name and Address Organization Details Recorded Time 4 text/htm l Care Management - DiabetesReported [...] and was never called , sent to [facility] but was never calledhere for rechk and is doing ok overallhome bp readings are 130sys and 60-70 diast avgno cp no soband her low back is ok does get back pain on occ Michael Montgomery, DO [address] [place], [address], [facility] 01/25/2024 14:19:52 4 text/htm l [...] hxhome bp are excellent Michael Montgomery DO [address] [place], [address], [facility] Internal Medicine 03/16/2024 14:18:06 4 text/htm [...] is 6.9 and 7.1 Michael Montgomery DO [address] [place], [address], [facility] Internal Medicine 07/06/2024 15:12:55 4 text/htm [...] Support:adequate assistance at home () RALPH MERCADO [address] [place], [address], [facility] Internal Medicine 08/08/2024 10:28:55 5 text/htm l Care Management - DiabetesReported bypatient.Self [...] confusion; no headaches; no fatigue here for rechkseeing dr plascencia for her right shoulder rotator and arthritis Michael Montgomery DO [address] [place], [address], [facility] Internal Medicine 11/04/2024 12:37:35 OBGyn Episode No OBEpisode recorded.
== END 2024-12-12 08:24 | disposition home or self-care (01) ==
LOC: HO.MANLDS 08:23
PROVIDERS: Visit Provider Internal Medicine
DX: Z13.89 Encounter for screening for other disorder (principal)

== ENCOUNTER 2025-02-10 09:09 | Outpatient (REF) | payer MEDICARE, SELFPAY ==
--- OUTSIDE RECORDS SUMMARY | 2025-02-10 09:24 | XMS_ITS | Data Portability ---
Author Organization [facility] Luis Carlosmaricruz Internal Medicine, Home Service Address [address] [place] [address] Assessment Encounter Date Assessment Date Assessment LastModified by Organization Details LastModified Time 03/16/2024 03/16/2024 [address] [place] [address] (CANDLE WRAPPER) [facility] MODERATE MUST MEET 2 OUT OF 3 [...] COVERED Not available 03/16/2024 14:14:20 07/06/2024 07/06/2024 [id number] [place] [address] (CANDLE WRAPPER) [facility] MODERATE MUST MEET 2 OUT OF 3 [...] COVERED Not available 07/06/2024 15:06:37 11/04/2024 11/04/2024 [address] [place] [address] (CANDLE WRAPPER) MDM MODERATE MUST MEET 2 OUT OF [...] available Not available Lab CBC 2024 025 [facility], [address] [place] [address], [address], 11/04/2024 12:20:41 vitamin D, 25-hydrox y, total, serum 2024 025 [facility], [address] [place] [address], [address], 11/04/2024 12:20:41 HbA1c (hemoglob in A1c), blood 2024 025 [facility], [address] [place] [address], [address], 12/13/2024 12:53:56 lipid panel, serum 2024 025 [facility], [address] [place] [address], [address], 11/04/2024 12:20:41 CMP, serum or plasma 2024 025 [facility], [address] [facility], [place], [address], 11/04/2024 12:20:41 CBC w/ auto diff 2024 025 [facility], [address] [place], [address], 11/04/2024 12:20:41 CBC 2023 024 [facility], [address] [place], [address], 05/19/2024 11:13:39 Referral general surgeon referral 2023 024 [email or web address] Niki Townsend, [address] [place], [address], 01/25/2024 14:41:32 Procedures None recorded. Surgeries None recorded. Imaging XR, shoulder, 2 or more view 2023 024 [facility], [address] [place], [address], 07/07/2024 08:25:23 XR, cervical spine, 2 or 3 view 2023 024 [facility], [address] [place], [address], 07/07/2024 10:21:12 pharmacol ogic nuclear stress test - patient has LBBB please note this 2023 024 [email or web address] Not available 03/21/2024 09:23:07 electroca rdiogram 2023 024 [email or web address] [facility] (Echocardiolo gy Lab), [address] [place], [address], 02/08/2024 08:28:14 Medication Orders hydrocort isone 2.5 % topical cream with perineal applicato r 2024 025 ANDREW [facility], [facility], [place], [address], 11/04/2024 12:23:09 Patient TargetsNo targets recorded. Patient Instructions Encounter Date Encounter Id Patient Instructions Last Modified By Organization Details Last Modified Time 01/25/2024 [id number] bradycardia: car e instructions Not available 01/25/2024 14:09:14 07/06/2024 [id number] learning about type 2 diabetes Not available 07/06/2024 15:09:01 type 2 diabetes: care instructions Not available 07/06/2024 15:09:01 11/04/2024 [id number] hemorrhoids: car e instructions Not available 11/04/2024 12:23:07 addendum; Per the revised ACC cardiac risk stratification this patient is deemed a low risk for the proposed shoulder surgery. She understands to take her usual medication on the morning of her procedure. Not available 12/27/2024 21:44:05 Reason for Referral General Surgeon Referral for Painless rectal bleeding Referring Physician: Michael Montgomery, Internal Medicine, Encounter Date: 01/25/2024 Results Created Date Observation Date Name Description Value Unit Range Abnormal Flag Note LastModifiedBy Organization Detail LastModifiedTime 01/29/20 24 01/29/2024 elect angelyariadna flako am No observ ation record ed. [email or web address] [facility] [address], [address], 02/03/2024 08:58:14 04/06/20 24 04/06/2024 pharm acolo gic nucle ar stres s test No observ ation record ed. [email or web address] [facility] [address] [facility], [place], [address], 04/11/2024 11:57:19 07/07/20 24 07/06/2024 XR, robles zahira, 2 or more view No observ ation record ed. [facility] [address] [facility] [address], [place], [address], 07/11/2024 09:38:34 07/07/20 24 07/06/2024 XR, cervi chato spine , 2 or 3 view No observ ation record ed. [facility] [address] [facility] [address], [place], [address], 07/11/2024 09:38:34 08/22/20 24 08/21/2024 MRI, shoul zahira, w/o contr ast No observ ation record ed. [email or web address] [facility] [address] [facility], [place], [address], 08/26/2024 09:33:42 Result Notes None recorded. Problems Name Problem SNOMED Code Status Onset Date Resolution Date Notes Provider Name and Address Organization Details Recorded Time History of appendect oli 163580029 Active 2017 1962 Not Available [facility] 4 03:59:46 Allergic rhinitis 44248537 Active 2017 Not Available [facility] 4 03:59:46 Hypertens ifeoma disorder 55696240 Active 2017 Not Available [facility] 4 03:59:46 Hyperlipi demia 15290246 Active 2017 Not Available [facility] 4 03:59:46 Menopause Active 2017 Not Available [facility] 4 03:59:45 Psoriasis 5099266 Active 2017 Not Available [facility] 4 03:59:46 Obstructi ve sleep apnea syndrome 00591562 Active 2017 Not Available [facility] 4 03:59:46 Type 2 diabetes mellitus 16290881 Active 2017 Not Available [facility] 4 03:59:46 Macular hole 573200050 Active 2018 Not Available [facility] 4 03:59:45 Derangeme nt of medial meniscus of right knee 455998962753 106 Active 2021 Not Available [facility] 4 03:59:45 Osteoarth ritis of left knee joint 162722333337 109 Active 2022 Not Available [facility] 4 03:59:46 Acute urinary tract infection 472453528 Active 2022 Not Available [facility] 4 03:59:46 Proctocol itis 867383537 Active 2023 Michael Montgomery, DO [address] [place] [address], [address], [facility] 4 19:17:28 Abdominal pain 45075991 Active 2023 RALPH MERCADO [address] [place] [address], [address], [facility] 4 13:34:36 Bradycard ia 24286912 Active 2023 Michael Montgomery, DO [address] [place] [address], [address], [facility] 4 14:08:14 Painless rectal bleeding 808404903 Active 2023 Michael Montgomery, DO [address] [place] [address], [address], [facility] 4 14:13:47 Dyspnea on exertion 13846302 Active 2023 Michael Montgomery DO [address] [place] [address], [address], [facility] 4 14:13:37 Left bundle branch block 48824883 Active 2023 Michael Montgomery, DO [address] [place] [address], [address], [facility] 4 14:14:14 Pain of left shoulder joint 923054054379 79491 Active 2023 Michael Montgomery DO [address] [place] [address], [address], [facility] 4 15:06:48 Cervical radiculop athy 24305179 Active 2023 Michael Montgomery DO [address] [place] [address], [address], [facility] 4 15:07:41 Rupture of rotator cuff of left shoulder 178577069162 62726 Active 2023 Michael Montgomery, [address], [address], [facility] 4 23:27:20 Impingeme nt syndrome of left shoulder region 033931992305 104 Active 2023 Michael Montgomery, [address], [address], [facility] 4 09:39:20 Hemorrhoi ds 23316846 Active 2024 Michael Montgomery [address], [address], [facility] 5 12:22:15 Problem Notes None recorded. Procedures Surgical History Date Name Laterality Status Provider Name and Address Organization Details Recorded Time 9 Most Recent Mammogram completed Eloise Perla [facility] 03/11/2019 16:30:52 Imaging Results Imaging Date Name Status LastModified by Organization Details LastModified Time 01/29/2024 electrocardiogram completed [email or web address] [facility] [address], [address], 02/03/2024 08:58:14 04/06/2024 pharmacologic nuclear stress test completed [email or web address] [facility] [address] [place], [address], 04/11/2024 11:57:19 07/06/2024 XR, shoulder, 2 or more view completed [address] [facility] [address] [place] [address] D, [place], [address], 07/11/2024 09:38:34 07/06/2024 XR, cervical spine, 2 or 3 view completed [address] [facility] [address] [place] [address] D, [place], [address], 07/11/2024 09:38:34 08/21/2024 MRI, shoulder, w/o contrast completed [email or web address] [facility] [address] [facility], [place], [address], 08/26/2024 09:33:42 Procedure Notes None recorded. Medical [...] 4 mg tablet TAKE 1 TABLET DAILY 2024 active Not Available Not Available Not Avai lable hydrocortis one 2.5 % topical cream PLEASE [...] 2.5 mg tablet TAKE 1 TABLET DAILY 04/25 /2022 completed Not Available Not Available Not Available [...] Available Not Available Not Available Fluzone High-Dose 8371-8079 (PF) 180 mcg/0.5 mL intramuscul ar syringe [...] Updated DateTime 4 150.5 cm 40.1 kg/m2 56112.4 7 g 70 /min 96 % 96 % 138 mm[Hg] 82 mm[Hg] Patricia Bernardo [place] - [facility] 4 13:54:47 Date Recorded Body height Body mass index (BMI) Body weight Heart rate Oxygen saturation Oxygen saturation in Arterial blood by Pulse oximetry Systolic blood pressure Diastolic blood pressure Provider Name and Address Organization Details Last Updated DateTime 4 150.5 cm 39.8 kg/m2 18748.0 9 g 71 /min 96 % 96 % 158 mm[Hg] 98 mm[Hg] Patricia Bernardo [facility] 4 13:40:47 Date Recorded Body height Body mass index (BMI) Body weight Heart rate Oxygen saturation Oxygen saturation in Arterial blood by Pulse oximetry Systolic blood pressure Diastolic blood pressure Provider Name and Address Organization Details Last Updated DateTime 4 150.5 cm 39.5 kg/m2 72732.7 g 64 /min 93 % 93 % 150 mm[Hg] 74 mm[Hg] Jasmina Post [facility] 4 14:46:43 Date Recorded Systolic blood pressure Diastolic blood pressure Provider Name and Address Organization Details Last Updated DateTime 07/06/2024 130 mm[Hg] 70 mm[Hg] Michael Montgomery, DO [address] [place] [address], [place], [address], [facility] 07/06/2024 15:04:48 Date Recorded Body height Body mass index (BMI) Body weight Heart rate Oxygen saturation Oxygen saturation in Arterial blood by Pulse oximetry Systolic blood pressure Diastolic blood pressure Provider Name and Address Organization Details Last Updated DateTime 4 150.5 cm 39.7 kg/m2 06654.0 1 g 88 /min 96 % 96 % 142 mm[Hg] 88 mm[Hg] Patricia Bernardo [facility] 4 10:17:41 Date Recorded Body height Body mass index (BMI) Body weight Heart rate Oxygen saturation Oxygen saturation in Arterial blood by Pulse oximetry Systolic blood pressure Diastolic blood pressure Provider Name and Address Organization Details Last Updated DateTime 5 150.5 cm 39.7 kg/m2 31561.2 9 g 72 /min 98 % 98 % 150 mm[Hg] 80 mm[Hg] Jasmina Pots [facility] 5 11:39:08 Social History Question Answer Notes LastModified by Organizat ion Details LastModified Time Tobacco Smoking Status Never Smoker Not Available [facility] 08/07/2020 03:36:24 What Was The Date Of Your Most Recent Tobacco Screening? 11/04/2024 [email or web address] Information not available 11/04/2024 Do You Or Have You Ever Used Any Other Forms Of Tobacco Or Nicotine? No Information not available 08/08/2022 Sex: Unknown Functional Status None recorded. Mental Status None recorded. Family History Nothing Reported. Medical History Condition Response Coronary Artery Disease N Other N Gout N Blood Diseases N Kidney Stones N Blood Transfusion N Breast Cancer N Depression N COPD N Lung Disease N Defects or Inherited Disease N Anxiety Disorder N Muscle, Joint, or Bone Problems N Obesity N Vision or Eye Problems N Arthritis N Polyps N Infertility N Mental Disorder N Cancer N Varicosities N Stroke N Endometriosis N Bladder or Kidney Problems N High Cholesterol N Liver Disease N Fibromyalgia N Headaches N Kidney Disease N Allergies/Hayfever N Heart Problems N Hospitalizations N Thyroid Problems N GI Problems N Skin Problems N Eating Disorder N Anemia N MRSA exposure N Constipation N Mental Illness N Ovarian Cancer N Diabetes N Seizures/Epilepsy N Tuberculosis N Congestive Heart Failure (CHF) N Eczema N Diverticulitis N Abuse/Domestic Violence N Asthma N Reflux/GERD N Hepatitis N Heart Disease N Pulmonary Embolism N Hypertension N Osteoporosis N Chicken Pox N Autism Spectrum Disorder (ASD) N Gynecological History Statement/Question Response Most Recent Mammogram 12/23/2018 Obstetrics History GPAL:G 0 P 0 0 0 0 Immunizations Vaccine Type Date Status Note Provider Nam e and Address Organization Details Recorded Time Influenza, split virus, quadrivalent, preservative 1 completed Not Available [facility] 11/08/2023 03:59:46 COVID-19, mRNA, LNP-S, PF, 30 mcg/0.3 mL dose 1 completed Not Available [facility] 11/08/2023 03:59:46 pneumococcal polysaccharide PPV23 8 completed Not Available [facility] 11/08/2023 03:59:46 Influenza, split virus, quadrivalent, preservative 8 completed Not Available [facility] 11/08/2023 03:59:46 COVID-19, mRNA, LNP-S, PF, 30 mcg/0.3 mL dose 2 completed Not Available [facility] 11/08/2023 03:59:46 Influenza, split virus, quadrivalent, preservative 2 completed Not Available [facility] 11/08/2023 03:59:46 COVID-19, mRNA, LNP-S, PF, 30 mcg/0.3 mL dose 2 completed Not Available [facility] 11/08/2023 03:59:46 influenza nasal, unspecified formulation 3 completed Not Available [facility] 11/08/2023 03:59:46 SARS-COV-2 (COVID-19) vaccine, UNSPECIFIED 3 completed Not Available [facility] 11/08/2023 03:59:46 Pneumococcal conjugate PCV 13 7 completed Not Available [facility] 11/08/2023 03:59:46 zoster live 3 completed Not Available [facility] 11/08/2023 03:59:46 Influenza, split virus, quadrivalent, preservative 9 completed Not Available [facility] 11/08/2023 03:59:46 COVID-19, mRNA, LNP-S, PF, 30 mcg/0.3 mL dose 1 completed Not Available [facility] 11/08/2023 03:59:46 COVID-19, mRNA, LNP-S, PF, 30 mcg/0.3 mL dose 1 completed Not Available [facility] 11/08/2023 03:59:46 Past Encounters Encounter ID Performer Location Encounter Start Date Encounter Closed Date Diagnosis/Indication Diagnosis SNOMED-CT Code Diagnosis ICD10 Code Diagnosis Note [id number] DO Tiana Rodriguez Internal [facility] [address] [facility],[place] [address] 05/05/2018 10:58:06 05/05/2018 14:30:59 Hypertensive disorder 61817788 I10 home bps are superb Type 2 jorge betes mellitus 20193614 E11.9 doing great a1c 6.2 andwill decrease lisinopril to 2.5mg Hypercholesterolemia 136 51411 E78.00 cont 20mg of atorvastat rechk in 6 mo [id number] Michael Montgomery [facility] [address] [facility] [address] [address] 11/10/2018 09:56:50 11/10/2018 11:11:37 Hypertensive disorder 11659613 I10 home bps are superb Type 2 jorge betes mellitus 43520678 E11.9 doing great a1c 6.2 andwill decrease lisinopril to 2.5mg Hepatitis C screening 41 4219358 Z11.59 Screening for malignant neoplasm of colon 932507342 Z12.11 Screening mammography 24 479390 Z12.31 [id number] Michael Montgomery [facility] [address] [facility] [address] [place] [facility] [place] [address] 03/14/2019 15:23:23 03/14/2019 16:08:36 Pre-surgery evaluation 616462855 Z01.818 likely will be cleared, awaiting cmp as requested by eye doctor Macular hole 067071734 H 35.349 planned vitrectomy Essential hypertension 98130730 I10 well controlled [id number] Michael Montgomery [facility] [address] [facility] [address] [address] 05/04/2019 11:09:20 05/04/2019 11:55:34 Hypertensive disorder 00382624 I10 home bps are superb at home and are running 120's sys low 70 diastol Type 2 jorge betes mellitus 01478639 E11.9 doing great a1c 6.5 and will decrease lisinopril to 2.5mg Hyperlipidemia 78730478 E78.5 [id number] Michael Montgomery [facility] [address] [facility] [address] [address] 10/12/2019 10:33:26 10/12/2019 10:54:08 Hypertensive disorder 09283484 I10 home bps are superb at home and are running 120's sys low 70 diastol Type 2 jorge betes mellitus 72722996 E11.9 doing great a1c 6.5 again and will also cont lisinopril to 2.5mg as the microalbum in levels are good Hyperlipidemia 63251872 E78.5 will increase to 40 mg [id number] Michael Montgomery [facility] [address] [facility],[place] [address] 05/02/2020 10:42:44 05/02/2020 12:19:32 Hypertensive disorder 27958881 I10 home bps are superb at home and are running 120's sys low 70 diastol still and is doing well Type 2 jorge betes mellitus 98437866 E11.9 doing great a1c is up to 7 was 6.5 and will need to adjust diet very quickly to turn this around will also cont lisinopril to 2.5mg as the microalbum in levels are good will check in 3 mo and see if we need to start treatment juan [id number] Michael Montgomery [facility] [address] [facility] [address],[place] [address] 08/06/2020 10:17:38 08/06/2020 10:45:58 Type 2 diabetes mellitus 67945565 E11.9 doing great a1c is still at 7.0 and was up to 7 was 6.5 and will need to keep an eye on this will also cont lisinopril to 2.5mg as the microalbum in levels are good will check in 3 mo Hyperlipidemia 02837236 E78.5 increased to 40 mg Hypertensive disorder 38 158047 I10 home bps are superb at home and are running 120's sys low 70 diastol still and is doing well no issues Obstructiv e sleep apnea syndrome 55117541 G47.33 wears her cpap [id number] Michael Montgomery [facility] [address] [facility],[place] [address] 01/09/2021 11:23:18 01/09/2021 12:06:18 Type 2 diabetes mellitus 74546943 E11.9 doing great a1c is still at 6.8 and was 7.0 and was up to 7 was 6.5 and will need to keep an eye on this will also cont lisinopril to 2.5mg as the microalbum in levels are excellent will check in 3 mo Hyperlipidemia 36384375 E78.5 increased to 40 mg and LDL down to 120's Hdl in 50's Hypertensive disorder 38 513494 I10 home bps are superb at home and are running 120's sys low 70 diastol still and is doing well no issues [id number] Michael CaroleeKristin Montgomery DO [facility] [address] [facility] [address],[place] [address] 05/29/2021 11:28:20 05/29/2021 12:35:34 Type 2 diabetes mellitus 97733868 E11.9 doing great a1c is still at 7.0 was 6.8 and was 7.0 and was up to 7 was 6.5 and will need to keep an eye on this will also cont lisinopril to 2.5mg as the microalbum in levels are excellent will check in 3 mo Hyperlipidemia 05277183 E78.5 hdl is still increased to 40 mg and LDL down to 118s Hdl Hypertensive disorder 38 382358 I10 home bps are superb at home and are running 120's sys low 70 diastol still and is doing well no issues [id number] Michael Montgomery DO [facility] [address] [facility] [address],[place] [address] 09/23/2021 08:23:13 09/23/2021 13:42:22 Hypertensive disorder 79125957 I10 home bps are superb at home and are running 130-40 's sys low 70 diastol still and is doing well no issuesno cp no sob Type 2 jorge betes mellitus 43453767 E11.9 doing great a1c is still doing great at 6.8 was 7.0 was 6.8 and was 7.0 and was up to 7 was 6.5 and will need to keep an eye on this will also cont lisinopril to 2.5mg as the microalbum in levels are excellent will check in 3 mo [id number] Michael Montgomery DO [facility] [address] [facility] [address],[place] [address] 01/27/2022 11:15:28 01/27/2022 11:48:09 Type 2 diabetes mellitus 48409477 E11.9 doing great a1c is still doing great at6.7 was6.8 was 7.0 was 6.8 and was 7.0 and was up to 7 was 6.5 and will need to keep an eye on this will increase lisinopril to 5mg as the microalbum in levels are excellent but bp is up will check in 3 mo Hypertensive disorder 38 666704 I10 home bps are elevated and pulse is a bit higher too we will go back to 5 mg lisinopril and rech several mo no issuesno cp no sob Psoriasis 6974158 L40.9 uses halobeta with good results [id number] Michael Montgomery [facility] [address] [facility] [facility] [place] [address] 08/08/2022 10:44:57 08/08/2022 14:30:30 Hypertensive disorder 90685207 I10 home bps are elevated and pulse is a bit higher too we will go back to 5 mg lisinopril and rech several mo no issuesno cp no sob Type 2 jorge betes mellitus 38758789 E11.9 noted a1c is elevated at 7.3 she willwork on this and we will rechk Obstructiv e sleep apnea syndrome 00812269 G47.33 wears her cpap Advance care planning 71 2541643 Z71.89 done Active or passive immunization 958907080 Z23 patient advised he is due for flu shot, tdap & shingles Derangemen t of medial meniscus of right knee 9145834312 47728 M23.203 has very pos [facility] [id number] Michael Montgomery [facility] [address] [facility] [facility] [place] [address] 11/28/2022 09:53:37 11/28/2022 11:08:34 Hypertensive disorder 07056571 I10 home bps are elevated and pulse is a bit higher too we will go back to 5 mg lisinopril and rech several mo no issuesno cp no sob Type 2 jorge betes mellitus 72238144 E11.9 noted a1c is elevated at 7.7 she will work on this and we will rechk but we will have her back on the glimepride 4mg Screening mammography 24 723495 Z12.31 [id number] Michael Montgomery [facility] [address] [facility],[place] [facility] [place] [address] 02/18/2023 10:42:27 02/18/2023 12:29:55 Hypertensive disorder 54229801 I10 blood pressures are now looking goodno cp no sob Type 2 jorge betes mellitus 79443931 E11.9 noted a1c is now down to 6.6 and doing great where he was at 7.7 she will work on this and we will rechk but we will have her back on the glimepride 4mg [id number] Michael Montgomery DO [facility] [address] [facility] [address] [address] 05/25/2023 10:36:46 05/25/2023 11:26:00 Hyperlipidemia 14302826 E78.5 hdl is still increased to 40 mg and LDL down to 118s Hdl Hypertensive disorder 38 851259 I10 blood pressures are now looking good an are excellent with home readings avg 130/70no cp no sob Type 2 jorge betes mellitus 11274562 E11.9 noted a1c is now down to 6.3 and prior was 6.6 and doing great where he was at 7.7 she will work on this and we will rechk but we will have her back on the glimepride 4mg Osteoarthr itis of left knee joint [id number] M17.12 getting worse with episodes of pain simona when twisting knee [id number] Michael Montgomery DO [facility] Internal Medicine [address] [facility] [address] [address] 09/21/2023 11:53:41 09/21/2023 13:41:08 Hyperlipidemia 87690403 E78.5 hdl is still increased to 40 mg and LDL down to 118s Hdl Hypertensive disorder 38 375115 I10 blood pressures are now looking good an are excellent with home readings avg 130/70no cp no sob Type 2 jorge betes mellitus [id number] E11.9 noted a1c is now up to 7.0 was down to 6.3 and prior was 6.6 and doing great where he was at 7.7 she will work on this as she had been doing a lot of treating with travel and holidays and we will rechk but we will have her back on the glimepride 4mg [id number] Michael Montgomery DO [facility] Internal Medicine [address] [facility] [address] [address] 01/25/2024 13:44:16 01/25/2024 14:33:26 Hyperlipidemia 52497850 E78.5 hdl is still increased to 40 mg and LDL down to 118s Hdl Hypertensive disorder 38 713317 I10 blood pressures are now looking good an are excellent with home readings avg 130/70no cp no sob Type 2 jorge betes mellitus 58172895 E11.9 noted a1c is now up to 7.0 was down to 6.3 and prior was 6.6 and doing great where he was at 7.7 she will work on this as she had been doing a lot of treating with travel and holidays and we will rechk but we will have her back on the glimepride 4mg Bradycardia [id number] R00 .1 will get ecg to check timing and NC intervals etc Painless r ectal bleeding [id number] K62.5 [id number] Michael Montgomery [facility] Internal Medicine [address] [facility], [place] [address] 03/16/2024 13:30:57 03/16/2024 14:29:53 Depression screening [id number] Z13.31 SCREENING NEGATIVE Dyspnea on exertion 6084 5006 R06.09 Left bundl e branch block [id number] I44.7 [id number] Michael Montgomery [facility] Internal Medicine [address] [facility], [place] [address] 07/06/2024 14:41:10 07/06/2024 15:13:11 Hypertensive disorder 49368851 I10 blood pressures are now looking good an are excellent with home readings avg 130/70no cp no sob Type 2 jorge betes mellitus 10411167 E11.9 noted a1c is now up to 7.0 was down to 6.3 and prior was 6.6 and doing great where he was at 7.7 she will work on this as she had been doing a lot of treating with travel and holidays and we will rechk but we will have her back on the glimepride 4mg Pain of le ft shoulder joint [id number] 4511621 M25.512 needs an mri major start with xr Cervical radiculopathy 06771545 M54.12 prob need for mri given hx of deg ds will order new xr [id number] Michael Montgomery [facility] Internal Medicine [address] [facility],[place] [address] 08/08/2024 10:12:46 08/08/2024 10:29:02 Pre-surgery evaluation [id number] Z01.818 The patient was seen in the office today for pre-op evaluation . All medical conditions on patient's problem list were addressed and are currently stable, no interventi on needed at this time. Based on history and physical performed, the patient is cleared for surgery. 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 She understand s to take her usual medication on the morning of her procedure. Health Concerns Section Related Observation LastModified by Organization Detai ls LastModified Time None Recorded Concern Status LastModified by Organization Details LastModified Time None Recorded Advance Directives Directive None Recorded Payers Encounter Date Sequence Insurance Name Policy Number Policy Diaz Covered Member ID Diaz Member ID Guarantor Name 01/25/2024 1 [place] PPO) [id number] Latonya Hickman [id number] Latonya Hickman 03/16/2024 1 [place]) [id number] Latonya Zarco Vick [id number] Latonya Zarco Vick 07/06/2024 1 [place] PPO) [id number] Latonya Zarco Vick [id number] Latonya Zarco Vick 08/08/2024 1 [place] PPO) [id number] Latonya Zarco Vick [id number] Latonya Zarco Vick 11/04/2024 1 [place] PPO) [id number] Latonya Zarco Vick [id number] Latonya Zarco Vick Notes Date Note Type Note Provider [...] and was never called , [facility] but was never calledhere for rechk and is doing ok overallhome bp readings are 130sys and 60-70 diast avgno cp no soband her low back is ok does get back pain on occ Michael Montgomery, DO [address] [place], [address], [facility] Internal Medicine 01/25/2024 14:19:52 4 text/htm [...] and family hxhome bp are excellent Michael Montgomery, DO [address] [place], [address], [facility] Internal Medicine 03/16/2024 14:18:06 4 text/htm [...] 6.9 and 7.1 Michael Montgomery DO [address] [place], [address], [facility] Internal Medicine 07/06/2024 15:12:55 4 text/htm [...] assistance at home () RALPH MERCADO [address] [place], [address], [facility] Internal Medicine 08/08/2024 10:28:55 5 text/htm [...] blurred vision; no confusion; no headaches; no fatigueNotes:stable and no major issues other than shoulder here [facility]ascencia for her right shoulder rotator and arthritis Michael Montgomery DO [address] [facility], [place], [address], [facility] Internal Medicine 12/27/2024 21:47:40 OBGyn Episode No OBEpisode recorded.
[2025-02-10 13:08] LABS: MANUAL DIFF FLAG NO
[2025-02-10 13:23] LABS: Basophils Percent Auto 0.4 % (0-2); Eosinophils Absolute Auto 0.3 X10*3/uL (0.0-0.4); Eosinophils Percent Auto 3.7 % (0-4); Hematocrit 38.7 % (37.0-47.0); Hemoglobin 12.5 g/dl (12.0-16.0); Imm Gran Abs Auto 0.02 X10*3/uL (0.00-0.03); Imm Gran Pct Auto 0.3 % (0.0-0.4); Lymphocytes Absolute Auto 3.5 X10*3/uL (1.2-4.9); Lymphocytes Percent Auto 44.8 % (20-40); Mean Corpuscular HGB Conc 32.3 g/dl (31.0-35.0); Mean Corpuscular Hemoglobin 29.8 pg (27.0-33.0); Mean Corpuscular Volume 92.1 fL (80.0-98.0); Mean Platelet Volume 10.7 fL (9.4-12.3); Monocytes Absolute Auto 0.5 X10*3/uL (0.1-1.2); Monocytes Percent Auto 6.4 % (2-11); Neutrophils Absolute Auto 3.5 x10*3/uL (2.0-8.3); Neutrophils Percent Auto 44.4 % (45-73); Platelet Count 192 X10*3/uL (160-400); Red Cell Distribution Width 12.9 % (11.0-16.0); White Blood Count 7.8 X10*3/uL (4.8-10.8)
[2025-02-10 13:54] LABS: Alanine Aminotransferase 22 U/L (0-31); Albumin Level 4.3 g/dL (3.5-5.0); Alkaline Phosphatase 77 U/L (39-117); Anion Gap 10 (12-20); Aspartate Amino Transferase 29 U/L (5-31); Bilirubin Total 0.3 mg/dL (0.0-1.0); Blood Urea Nitrogen 18 mg/dL (9-16); Calcium 9.5 mg/dL (8.4-10.2); Carbon Dioxide 27 mmol/L (22-29); Chloride 105 mmol/L (96-108); Cholesterol 214 mg/dL (<200); Estimated Glomerular Filt Rate > 60; Glucose Random 143 mg/dL (60-115); HDL Cholesterol 50 mg/dL (>40); LDL Cholesterol Calculated 127 mg/dL (<100); Potassium 4.1 mmol/L (3.3-5.1); Sodium 138 mmol/L (135-145); Total Protein 7.3 g/dL (6.5-8.0); Triglycerides 186 mg/dL (<150)
[2025-02-10 14:17] LABS: Vitamin D 25-OH Total 71.3 ng/mL (>30)
[2025-02-10 14:32] LABS: Estimated Average Glucose 160 mg/dL; Hemoglobin A1C 180.4122 umol/L; Hemoglobin A1c % 7.2 % (<6.0); Total Hemoglobin (HGBA1C) 3284.7205 umol/L
== END 2025-02-10 09:10 | disposition home or self-care (01) ==
LOC: HO.MANLDS 09:09
PROVIDERS: Visit Provider Internal Medicine
DX: E78.5 Hyperlipidemia, unspecified (principal); I10 Essential (primary) hypertension; E11.9 Type 2 diabetes mellitus without complications
CPT/HCPCS: 36415; 80053; 80061; 82306; 83036; 85025

== ENCOUNTER 2025-06-28 10:11 | Outpatient (REF) | payer MEDICARE, SELFPAY ==
--- OUTSIDE RECORDS SUMMARY | 2025-06-28 12:32 | XMS_ITS | Encounter Summary ---
Author Organization [facility] Address [address] [place] [address] Phone Care Team Providers Care Dentures Lab Technician Name Role Phone Michael Lucia Carolee HUNTER Primary Care Provider [phone] Encounter Details Date Type Department Care Team (Late st Contact Info) Description 11/07/2023 Procedure Pass [facility], Ct Scan - [address] [address] Social History Tobacco Use Types Packs/Day Years Used Date Smoking Tobacco: Never Smokeless Tobacco: Never Alcohol Use Standard Drinks/Week Comments Never 0 (1 standard drink = 0.6 oz pur e alcohol) Education Answer Date Recorded Are you interested in more education? Not on riddhi e 01/30/2023 Are you concerned about learning? Not on file 01/30/2023 No 01/30/2023 No 01/30/2023 Digital Access Answer Date Recorded No 02/28/2023 No 02/28/2023 No 02/28/2023 Reliable internet access at home? Not on file 02/28/2023 Device with a working camera? Not on file Intimate Partner Violence Answer Date R ecorded Are you denied basic needs s uch as food, clothing, or medical care? No 11/07/2023 In the past 12 months have y ou been in a relationship with a person who hurts, threatens, or tries to control you? No 11/07/2023 Are you denied basic needs s uch as food, clothing, or medical care? No 11/07/2023 In the past 12 months have y ou been in a relationship with a person who hurts, threatens, or tries to control you? No 11/07/2023 Comments Unknown Sex and Gender Information Value Date Recorded Sex Assigned at Female 11/07/2023 3:16 PM EST Legal Sex Female 10:02 PM EDT Gender Identity Female 11/07/2023 3:16 PM EST Sexual Orientation Straight 11/07/2023 3: 16 PM EST documented as of this encounter Functional Status * Calculated C-SSRS Risk Score (Lifetime/Recent) Answer Date of Assessment Author No Risk Indicated 11/07/2023 3:16 PM Yesi Olvera RN * [place] Suicide Severity Rating Scale (Screener/Recent Self-Report) Question Answer Date of Assessment Author 1. Wish to be (Past 1 Month) No 11/07/2023 3:16 PM Yesi Olvera RN 2. Non-Specific Active Suici salud Thoughts (Past 1 Month) No 11/07/2023 3:16 PM Aria Olvera RN 6. Suicidal Behavior (Lifetime) No 3:16 PM Yesi Olvera RN documented as of this encounter Plan of Treatment Not on file documented as of this encounter Visit Diagnoses Not on filedocumented in this encounter Care Teams Dentures Lab Technician Relationship Specialty Start Date End Date Michael Lucia DO [email or web address] PCP - General Internal Medicine 06/18/19 documented as of this encounter Additional Source Comments The information contained in this document represents components of the legal health record. It is not the complete legal health record.[facility]
--- OUTSIDE RECORDS SUMMARY | 2025-06-28 12:32 | XMS_ITS | Encounter Summary ---
Author Organization [facility] Address [address] [address] Phone Care Team Providers Care Tooler Name Role Phone Michael Lucia DO Primary Care Provider Reason for Referral * MRI/CAT Scan - Closed Specialty Diagnoses / Procedures Referred By Contac t Referred To Contact Radiology Diagnoses Left bundle-branch block, unspecified Procedures NC Myocardial Perfusion Pharmacologic Stress Multiple CHG MYOCARDIAL SPECT MULTIPLE STUDIES CHG MYOCARDIAL PERFUSION PLANAR 1 STUDY REST/STRESS CHG MYOCARDIAL PERFUSION PLANAR MULTIPLE STUDIES Michael Lucia DO Phone: tel: fax: mailto:[email or web address] Referral ID Status Reason Start Date Expiration Date Visits Re quested Visits Authorized [id number] Closed 03/18/2024 05/15/2024 4 4 Encounter Details Date Type Department Care Team (Late st Contact Info) Description 03/18/2024 Transcribe Orders Virtual Department [address] [place] [address] Michael Lucia DO [address] [facility] [place] [address] [email or web address] Left bundle-branch block, unspecified (Primary Dx) Social History Tobacco Use Types Packs/Day Years [...] PM EST documented as of this encounter Plan of Treatment Not on file documented as of this encounter Results * NC Myocardial Perfusion Pharmacologic Stress Multiple (04/06/2024 11:23 AM EDT) Anatomical Region Laterality Modality Heart, Vascular Nuclear Medicine 04/06/2024 1:38 PM EDT Impressions 04/06/2024 10:13 PM EDT Left ventricular ejection fraction: 75% Within the limitations of breast soft tissue attenuation artifact anteriorly, no evidence of ischemia or infarction. Narrative 04/06/2024 10:13 PM EDT EXAM: NC MYOCARDIAL PERFUSION PHARMACOLOGIC STRESS MULTIPLE CLINICAL INDICATION: Outside Radiology Order; left bundle branch block. TECHNIQUE: According to standard departmental protocol, the patient was injected with 10.8 mCi of TC-99M Sestamibi IV at rest and ungated SPECT myocardial images were obtained. Subsequently, a stress test was performed and 30.3 mCi of TC-99M Sestamibi was injected at peak stress. After 30 to 60 minutes, gated SPECT images were obtained and assessed for myocardial perfusion and left ventricular function. Stress EKG findings were interpreted by cardiology and are reported separately. Please refer to that report in [facility]. COMPARISON: None. FINDINGS: PERFUSION: Perfusion images demonstrate an area of decreased uptake in the anteroseptal wall which worsens on the rest images. VENTRICULAR SIZE AND FUNCTION: Left ventricular ejection fraction within normal limits. Left ventricular size within normal limits. No regional wall motion abnormality. LV EF: 75% TID Ratio: 1.11 IMAGE QUALITY: Good. Breast soft tissue attenuation artifacts anteriorly. Procedure Note Nadine Marcial MD - 04/06/2024 EXAM: NC MYOCARDIAL PERFUSION PHARMACOLOGIC STRESS MULTIPLE CLINICAL INDICATION: Outside Radiology Order; left bundle branch block. TECHNIQUE: According to standard departmental protocol, the patient wasinjected with 10.8 mCi of TC-99M Sestamibi IV at rest and ungated SPECTmyocardial images were obtained. Subsequently, a stress test was performedand 30.3 mCi of TC-99M Sestamibi was injected at peak stress. After 30 to60 minutes, gated SPECT images were obtained and assessed for myocardialperfusion and left ventricular function. Stress EKG findings were interpreted by cardiology and are reportedseparately. Please refer to that report in [facility]. COMPARISON: None. FINDINGS: PERFUSION: Perfusion images demonstrate an area of decreased uptake in theanteroseptal wall which worsens on the rest images. VENTRICULAR SIZE AND FUNCTION: Left ventricular ejection fraction withinnormal limits. Left ventricular size within normal limits. No regionalwall motion abnormality. LV EF: 75% TID Ratio: 1.11 IMAGE QUALITY: Good. Breast soft tissue attenuation artifactsanteriorly. IMPRESSION: Left ventricular ejection fraction: 75% Within the limitations of breast soft tissue attenuation artifactanteriorly, no evidence of ischemia or infarction. us Michael A Bigda DO CV NM CARDIAC Final Result documented in this encounter Visit Diagnoses Diagnosis Left bundle-branch block, unspecified- Primary Left bundle-branch block, unspecified documented in this encounter Care Teams Tooler Relationship Specialty Start Date End Date Michael Lucia DO [email or web address] PCP - General Internal Medicine 06/18/19 documented as of this encounter Additional Source Comments The information contained in this document represents components of the legal health record. It is not the complete legal health record.[facility]
--- OUTSIDE RECORDS SUMMARY | 2025-06-28 12:32 | XMS_ITS | Encounter Summary ---
Author Organization [facility] Address [address] [facility] [address] [place] [address] Phone Care Team Providers Care Wire Frame Lampshade Maker Name Role Phone Michael Lucia DO Primary Care Provider [phone] Reason for Referral * MRI/CAT Scan - Closed Specialty Diagnoses / Procedures Referred By Contac t Referred To Contact Radiology Diagnoses Left bundle-branch block, unspecified Procedures NC Stress Result for Nuclear Stress Test Michael Lucia DO Phone: tel: fax: [email or web address]:[email or web address] Referral ID Status Reason Start Date Expiration Date Visits Re quested Visits Authorized [id number] Closed 04/06/2024 04/06/2025 1 1 Encounter Details Date Type Department Care Team (Late st Contact Info) Description 04/06/2024 Ancillary Orders Virtual Department [address] [place] [address] Michael Lucia DO [address] [facility] [place] [address] [email or web address] Left bundle-branch block, unspecified (Primary Dx) Social [...] as of this encounter Results * NC Stress Result for Nuclear Stress Test (04/06/2024 11:03 AM EDT) Max Predicted Heart Rate 147 bpm [facility] Max BP Systolic 144 mmHg [facility] Max BP Diastolic 72 mmHg [facility] Max HR 87 BPM [facility] Resting HR 55 BPM [facility] Resting BP Systolic 132 mmHg [facility] Resting BP Diastolic 80 mmHg [facility] Peak METS 1.0 METS [facility] Peak HR 87 BPM [facility] Anatomical Region Laterality Modality Heart Other 04/06/2024 9:59 AM EDT 04/06/2024 11:02 AM EDT Narrative 04/06/2024 1:20 PM EDT Stress Findings The resting heart rate was 55 BPM. The resting BP was 132/80 mmHg. A peak heart rate of 87 BPM was achieved. ECG REPORT- Test was performed as a pharmaceutical test due to presence of LBBB. 0.4 mg Regadenoson (lexiscan) given IV push over 10 seconds as per protocol immediately followed by injection of Tc99m Sestamibi by [employer] nuclear weapons specialist. 1. EKG - Baseline EKG showed sinus bradycardia with LBBB. 2. SYMPTOMS - No chest pain 3. PHYSIOLOGY - Resting HR was 57 bpm . After Lexiscan injection, HR 87 bpm 4. ARRHYTHMIAS - rare isolated PVC's Conclusion - The EKG portion of this test was non diagnostic due to LBBB. There were no reported symptoms concerning for angina. Nuclear images pending and will be reported separately. Latoya Avilez NP with Dr. Berger Response to Stress The patient exercised for minutes and seconds, achieving 1.0 METS at peak exercise. Baseline blood pressure was 132/80 mmHg, and baseline heart rate was 55 bpm. The patient achieved a peak heart rate of 87 bpm, which is% of their maximum predicted heart rate. us Michael Lucia DO CV NM CARDIAC Final Result documented in this encounter Visit Diagnoses Diagnosis Left bundle-branch block, unspecified- Primary Left bundle-branch block, unspecified documented in this encounter Care Teams Wire Frame Lampshade Maker Relationship Specialty Start Date End Date Michael Lucia DO [email or web address] PCP - General Internal Medicine 06/18/19 documented as of this encounter Additional Source Comments The information contained in this document represents components of the legal health record. It is not the complete legal health record.[facility]
--- OUTSIDE RECORDS SUMMARY | 2025-06-28 12:32 | XMS_ITS | Encounter Summary ---
Author Organization [facility] Address [address] [address] Phone Care Team Providers Care Gate Person Name Role Phone Michael Lucia DO Primary Care Provider [phone] Reason for Referral * MRI/CAT Scan - Closed Specialty Diagnoses / Procedures Referred By Contac t Referred To Contact Radiology Diagnoses Impingement syndrome of left shoulder Procedures MRI Shoulder (Left) CHG MRI, JOINT UPPER EXTREM CHG MRI, JOINT UPPER EXTREM W/CONTRAST CHG MRI, JOINT UPPER EXTREM COMBO Michael Lucia DO Phone: tel: fax: [email or web address] Referral ID Status Reason Start Date Expiration Date Visits Re quested Visits Authorized [id number] Closed 07/11/2024 09/08/2024 1 1 Encounter Details Date Type Department Care Team (Late st Contact Info) Description 07/11/2024 Transcribe Orders Virtual Department [address] [place] [address] Michael Lucia DO [address] [facility] [place] [address] [email or web address] Impingement syndrome of left shoulder (Primary Dx) Social History Tobacco Use Types [...] documented as of this encounter Results * MRI SHOULDER WITHOUT CONTRAST (LEFT) (08/21/2024 7:47 AM EST) Anatomical Region Laterality Modality Shoulder Left Magnetic Resonan ce 08/22/2024 2:20 PM EST Impressions 08/22/2024 2:25 PM EST 1. Extensive rotator cuff tear. This includes a large full-thickness, partial width, retracted supraspinatus tear, with the remaining intact fibers of the supraspinatus degenerated and attenuated. Subscapularis tendon is severely attenuated and lax, consistent with significant chronic tearing. Degenerative tendinosis with lesser partial tearing/fraying of the anterior infraspinatus. Chronic muscle atrophy, most severe within the subscapularis and to a lesser degree the supraspinatus. 2. Mild glenohumeral osteoarthritis and small joint effusion. Mild blunting/fraying of the superior labrum. Nonvisualized long head of the biceps tendon, which is presumed torn or significantly degenerated. 3. Mild hypertrophic acromioclavicular degeneration and small joint effusion. Narrative 08/22/2024 2:25 PM EST MRI SHOULDER WITHOUT CONTRAST (LEFT) Referring clinician's provided indication for this examination in Epic: Outside Radiology Order; impingement HISTORY: Left shoulder pain. COMPARISONS: None. TECHNIQUE: Multiplanar, multisequence imaging through the left shoulder, without IV gadolinium. FINDINGS: ROTATOR CUFF: High-grade rotator cuff tearing and degeneration. There is a large full- thickness partial width moderately retracted tear of the supraspinatus, with the area of high-grade tearing spanning about 3 cm in the sagittal AP dimension, and the fluid gap measuring about 1.2 cm in the coronal oblique plane, with the retracted mid and articular surface fibers seen to almost the level of the superior glenoid. The remaining intact fibers of the supraspinatus are degenerated and frayed. There is also moderate tendinosis and mild to moderate partial tearing and fraying of the infraspinatus particularly along the anterior fibers. Finally the subscapularis tendon is severely attenuated and lax consistent with high-grade tearing with associated retraction. Mild subacromial/subdeltoid bursitis. Chronic muscle atrophy, most severe within the subscapularis to a lesser degree the supraspinatus and minor in the infraspinatus, accounting for age. AC JOINT: Mild hypertrophic degenerative changes with small joint effusion. BONE MARROW: Mild cystic change within the greater tuberosity. BICIPITAL TENDON: Bicipital tendon and intra-articular segment not well visualized, presumed torn or degenerated. GLENOID LABRUM: Limited nonarthrographic labral assessment. Mild signal abnormality with mild blunting and fraying of the superior labrum. GLENOHUMERAL JOINT: Mild osteoarthritis with mild chondromalacia and small to moderate joint effusion. PERIARTICULAR SOFT TISSUES: Otherwise unremarkable. Procedure Note Mitchell Truong MD - 08/22/2024 MRI SHOULDER WITHOUT CONTRAST (LEFT) Referring clinician's provided indication for this examination in Epic:Outside Radiology Order; impingement HISTORY: Left shoulder pain. COMPARISONS: None. TECHNIQUE: Multiplanar, multisequence imaging through the left shoulder,without IV gadolinium. FINDINGS: ROTATOR CUFF: High-grade rotator cuff tearing and degeneration. There romain large full-thickness partial width moderately retracted tear of thesupraspinatus, with the area of high-grade tearing spanning about 3 cm inthe sagittal AP dimension, and the fluid gap measuring about 1.2 cm in thecoronal oblique plane, with the retracted mid and articular surface fibersseen to almost the level of the superior glenoid. The remaining intactfibers of the supraspinatus are degenerated and frayed. There is alsomoderate tendinosis and mild to moderate partial tearing and fraying ofthe infraspinatus particularly along the anterior fibers. Finally thesubscapularis tendon is severely attenuated and lax consistent withhigh-grade tearing with associated retraction. Mild subacromial/subdeltoidbursitis. Chronic muscle atrophy, most severe within the subscapularis toa lesser degree the supraspinatus and minor in the infraspinatus,accounting for age. AC JOINT: Mild hypertrophic degenerative changes with small jointeffusion. BONE MARROW: Mild cystic change within the greater tuberosity. BICIPITAL TENDON: Bicipital tendon and intra-articular segment not wellvisualized, presumed torn or degenerated. GLENOID LABRUM: Limited nonarthrographic labral assessment. Mild signalabnormality with mild blunting and fraying of the superior labrum. GLENOHUMERAL JOINT: Mild osteoarthritis with mild chondromalacia andsmall to moderate joint effusion. PERIARTICULAR SOFT TISSUES: Otherwise unremarkable. IMPRESSION: 1. Extensive rotator cuff tear. This includes a large full-thickness,partial width, retracted supraspinatus tear, with the remaining intactfibers of the supraspinatus degenerated and attenuated. Subscapularistendon is severely attenuated and lax, consistent with significant chronictearing. Degenerative tendinosis with lesser partial tearing/fraying ofthe anterior infraspinatus. Chronic muscle atrophy, most severe within thesubscapularis and to a lesser degree the supraspinatus. 2. Mild glenohumeral osteoarthritis and small joint effusion. Mildblunting/fraying of the superior labrum. Nonvisualized long head of thebiceps tendon, which is presumed torn or significantly degenerated. 3. Mild hypertrophic acromioclavicular degeneration and small jointeffusion. us Michael Lucia DO IMG MR EXTREMITY Final Result documented in this encounter Visit Diagnoses Diagnosis Impingement syndrome of left shoulder- Primary Impingement syndrome of left shoulder documented in this encounter Care Teams Gate Person Relationship Specialty Start Date End Date Michael Lucia DO [email or web address] PCP - General Internal Medicine 06/18/19 documented as of this encounter Additional Source Comments The information contained in this document represents components of the legal health record. It is not the complete legal health record.[facility]
--- OUTSIDE RECORDS SUMMARY | 2025-06-28 12:32 | XMS_ITS | Clinical Summary ---
Author Organization [facility] Address [address] [place] [address] Phone Care Team Providers Care Pharmacy Tech Name Role Phone Michael Lucia Primary Care Provider [phone] Allergies No known active allergies Medications lisinopril (PRINIVIL,ZESTR IL) 10 MG tablet Take 10 mg by mouth daily. Active lovastatin (MEVACOR) 40 MG tablet Take 40 mg by mouth nightly at bedtime. 05/13/2010 Active glimepiride (AMARYL) 4 MG tablet Take 4 mg by mouth daily before breakfast. Active aspirin 81 MG EC tablet Take 81 mg by mouth daily. Active Social History Tobacco Use Types Packs/Day Years [...] Orientation Straight 11/07/2023 3: 16 PM EST Last Filed Vital Signs Vital Sign Reading Time Taken Comments Blood Pressure 128/70 04/06/2024 10:25 AM EDT Pulse 66 11/07/2023 9:57 PM EST Temperature 36.9 C (98.4 F) 11/07/2023 9:57 PM EST Respiratory Rate 16 11/07/2023 9:57 PM EST Oxygen Saturation 97% 11/07/2023 9:57 PM EST Inhaled Oxygen Concentration - - Weight 88.5 kg (195 lb) 08/14/2024 2:37 PM EST Height 152.4 cm (5') 08/14/2024 2:37 PM EST Body Mass Index 38.08 08/14/2024 2:37 PM EST Plan of Treatment Health Maintenance Due Date Last Done Comments Adult Td,Tdap Booster 1950 LIPID PANEL 1950 DEPRESSION SCREENING 1962 HEPATITIS C SCREENING 1968 MAMMOGRAM 1990 COLOGUARD 1995 COLONOSCOPY 1995 COLORECTAL CANCER SCREENING 1995 FIT TEST 1995 FOBT 1995 SIGMOIDOSCOPY 1995 VIRTUAL COLONOSCOPY 1995 ZOSTER VACCINES (2 of 3) 09/07/2013 07/13/2013 OSTEOPOROSIS SCREENING INITIAL (ONE-TIME) 2015 CREATININE LEVEL 11/07/2024 11/07/2023 POTASSIUM LEVEL 11/07/2024 11/07/2023 INFLUENZA VACCINE (#1) 2025 , 06/22/2019, 07/06/2018, Additional history exists COVID-19 VACCINE ( - 2024- season) 2025 12/12/2020, 11/20/2020 RSV VACCINE (1 - 1-dose 75+ series) 2025 PNEUMOCOCCAL VACCINES (50+ years) Completed 07/06/2018, 06/26/2017 SMOKING STATUS SCREENING (Once After 26 Yrs) Completed 06/18/2019 HEPATITIS A VACCINES Aged Out No long er eligible based on patient's age to complete this topic HIB VACCINES Aged Out No longer eligi ble based on patient's age to complete this topic MENINGOCOCCAL VACCINES (ACWY) Aged Out No longer eligible based on patient's age to complete this topic MENINGOCOCCAL VACCINES (B) Aged Out N o longer eligible based on patient's age to complete this topic Medical Devices Not on file Procedures Procedure Name Priority Date/Time Associated Diagnosis Comments BASIC METABOLIC PANEL STAT 11/07/2023 4:19 PM EST from Last 3 Months or Most Recently Relevant to Health Maintenance Results * (ABNORMAL) Basic metabolic panel (11/07/2023 4:19 PM EST) SODIUM 142 133 - 146 mmol/L [facility] CHLORIDE 105 96 - 108 mmol/L [facility] POTASSIUM 4.0 3.3 - 5.1 mmol/L [facility] CO2 27 21 - 35 mmol/L [facility] BUN 17 6 - 19 mg/dL [facility] CREATININE 0.70 0.5 - 1.5 mg/dL [facility] GLUCOSE 117(H) 70 - 99 mg/dL [facility] CALCIUM 9.5 8.4 - 10.3 mg/dL [facility] EGFR 91 >59 mL/min/1.7 3m2 [facility] Comment:Estimated glomerular filtration rate calculated using the CKD-EPI refit equation. ANION GAP 14 10 - 20 mmol/L [facility] Blood 11/07/2023 4:19 PM EST 11/07/2023 4:30 PM EST us Wallace Mock PA-C LAB BLOOD ORDERABLES Final Res ult [address] [address] from Last 3 Months or Most Recently Relevant to Health Maintenance [place] [address] [address] [place] [address] MEDICARE PPO BLUE [place] [address] [place] [address] MEDICARE PPO BLUE REPLACEMENT Care Teams Pharmacy Tech Relationship Specialty Start Date End Date Michael Lucia DO [email or web address] PCP - General Internal Medicine 06/18/19 Additional Source Comments The information contained in this document represents components of the legal health record. It is not the complete legal health record.[facility]
--- OUTSIDE RECORDS SUMMARY | 2025-06-28 12:32 | XMS_ITS | Encounter Summary ---
Author Organization [facility] Address [address] [facility] [address] [place] [phone] Phone Care Team Providers Care Integration Engineer Name Role Phone SurendraMichael min Carolee [place] Primary Care Provider [phone] Encounter Details Date Type Department Care Team (Late st Contact Info) Description 07/11/2024 Procedure Pass [facility], [address] [address] Social History Tobacco Use Types Packs/Day Years [...] on filedocumented in this encounter Care Teams Integration Engineer Relationship Specialty Start Date End Date Michael Lucia DO [email or web address] PCP - General Internal Medicine 06/18/19 documented as of this encounter Additional Source Comments The information contained in this document represents components of the legal health record. It is not the complete legal health record.[facility]
[2025-06-28 14:04] LABS: MANUAL DIFF FLAG NO
[2025-06-28 14:08] LABS: Hematocrit 37.2 % (37.0-47.0); Hemoglobin 12.5 g/dl (12.0-16.0); Imm Gran Abs Auto 0.01 X10*3/uL (0.00-0.03); Imm Gran Pct Auto 0.1 % (0.0-0.4); Lymphocytes Absolute Auto 3.5 X10*3/uL (1.2-4.9); Mean Corpuscular HGB Conc 33.6 g/dl (31.0-35.0); Mean Corpuscular Hemoglobin 30.0 pg (27.0-33.0); Mean Corpuscular Volume 89.4 fL (80.0-98.0); NRBC Abs Auto 0.000 X10*3/uL (0.0-0.012); NRBC Pct Auto 0.0 /100WBC (0.0-0.2); Platelet Count 171 X10*3/uL (160-400); Red Blood Count 4.16 X10*6/uL (4.20-5.50); White Blood Count 7.6 X10*3/uL (4.8-10.8)
[2025-06-28 14:15] LABS: Microalbum/Creatinine Ratio Ur 7.5 ug/mg cr (<30)
[2025-06-28 14:39] LABS: Alanine Aminotransferase 43 U/L (0-31); Albumin Level 4.5 g/dL (3.5-5.0); Alkaline Phosphatase 70 U/L (39-117); Anion Gap 10 (12-20); Aspartate Amino Transferase 38 U/L (5-31); Blood Urea Nitrogen 24 mg/dL (9-16); Calcium 9.2 mg/dL (8.4-10.2); Carbon Dioxide 27 mmol/L (22-29); Chloride 110 mmol/L (96-108); Cholesterol 208 mg/dL (<200); Estimated Glomerular Filt Rate > 60; HDL Cholesterol 47 mg/dL (>40); Potassium 4.1 mmol/L (3.3-5.1); Sodium 143 mmol/L (135-145); Total Protein 7.1 g/dL (6.5-8.0); Triglycerides 190 mg/dL (<150)
[2025-06-28 14:54] LABS: Hemoglobin A1C 339.6248 umol/L; Total Hemoglobin (HGBA1C) 5733.6735 umol/L
== END 2025-06-28 10:12 | disposition home or self-care (01) ==
LOC: HO.MANLDS 10:11
PROVIDERS: Visit Provider Internal Medicine
DX: E11.9 Type 2 diabetes mellitus without complications (principal)
CPT/HCPCS: 36415; 80053; 80061; 82043; 82570; 83036; 85025